=== PATIENT | female | born 1980 | race Caucasian/White ===

== ENCOUNTER 2020-11-05 17:19 | Outpatient (REF) | payer BC, SELFPAY ==
[2020-11-05 22:07] LABS: Abs Immature Grans 0.02 10^3/uL (0.0-0.06); Absolute Basophil Count 0.08 10^3/uL (0.0-0.2); Absolute Lymphocyte Count 2.18 10^3/uL (1.2-3.4); Absolute Monocyte Count 0.53 10^3/uL (0.1-0.8); Absolute Neutrophil Count 4.21 10^3/uL (1.2-6.7); Basophils % 1.1; Eosinophils % 6.6; HCT 43.6 % (36.0-46.0); HGB 14.5 g/dL (11.2-15.7); Immature Grans % 0.3; MCHC 33.3 % (32.0-36.0); MCV 93.4 fL (80-95); MPV 10.5 fL (8.0-11.0); Nucleated RBC 0 %; Platelet Count 325 10^3/uL (130-400); RBC 4.67 10^6/uL (3.93-5.22); RDW 12.8 % (11.7-14.6); RDW-SD 43.8 fL; WBC 7.52 10^3/uL (4.4-10.8)
[2020-11-05 22:23] LABS: ALT 24 U/L (14-59); AST 14 U/L (15-37); Albumin 4.4 g/dL (3.4-5.0); Alkaline Phosphatase 61 U/L (46-116); Anion Gap 13.6 mmol/L (3-11); BUN 11 mg/dL (7-18); Bilirubin, Total 0.2 mg/dL (0.2-1.0); CO2 21.4 mmol/L (21.0-32.0); CREATININE 0.8 mg/dL (0.55-1.02); Calcium 8.9 mg/dL (8.5-10.1); Chloride 108 mmol/L (98-107); Glucose 86 mg/dL (74-106); Potassium 4.2 mmol/L (3.5-5.1); Sodium 143 mmol/L (136-145); Total Protein 7.1 g/dL (6.4-8.2)
== END 2020-11-05 17:20 | disposition home or self-care (01) ==
LOC: LBN 17:19
PROVIDERS: Visit Provider Physician Assistant
DX: R10.9 Unspecified abdominal pain (principal)
CPT/HCPCS: 80053; 87491; 87591; 85025; 87480; 87510; 87660

== ENCOUNTER 2020-11-06 17:36 | Emergency (ER) | payer BC, SELFPAY ==
[2020-11-06 17:41] VITALS: BP 110/69; PULSE 67; TEMP 36.8; O2SAT 99
--- NOTE | 2020-11-06 18:39 | W.ED.GENAD ---
Discharge Plan Disposition Patient Disposition: HOME Condition: Stable Discharge Details Clinical Impression: Abdominal pain, Cholelithiasis Primary Care Provider: Marci Cruz ED Provider: Hussain Kaminski Home Meds and New Rx's Prescriptions: New metoclopramide HCl [Reglan] 10 mg tablet 10 mg PO Q8H PRN PRNQty: 10 RF: 0 Continued topiramate [Topamax] 25 mg tablet 50 mg PO BID RF: 0 gabapentin 100 mg capsule 200 mg PO BID RF: 0 lamotrigine 25 mg tablet 25 mg PO DIRECTED RF: 0 lorazepam 0.5 mg tablet 0.5 mg PO DAILY PRNRF: 0 Discharge Instructions Instructions: Gallstones (ED), Abdominal Pain (ED) Additional Instructions: At this time your laboratory values do not reveal any obvious emergent process. CT imaging reveals gallstones but no signs of acute cholecystitis. As we discussed, avoid fatty, greasy, fried foods. Reglan as directed for nausea. Please watch for new or worsening symptoms and return to the ER for any concerns. I have given you the name and number of our local surgical team, contact their office tomorrow to discuss outpatient reevaluation for your ongoing abdominal symptoms Referrals: Karol Flood, [OSTEOPATHIC DOCTOR] - Discharge Data Discharge Date/Time-TO BE ENTERED AT DEPARTURE: 11/06/20 22:11 Medical Decision Making This is a 40-year-old female presenting to the ER today for evaluation. She was seen at the urgent care yesterday, had a pelvic examination and laboratory values. She states that they were working on an outpatient CT but unable because of insurance issues. In short, abdominal pain, nausea, diarrhea for several weeks, weight loss because of the severe nausea and lack of appetite. She states that she has had a colonoscopy and endoscopy in the past where they saw ulcers but this feels nothing like that. Patient is hoping that we are able to obtain CT imaging for further evaluation. Clinically she appears well, nontoxic, no signs of dehydration. Her abdomen is soft, normal bowel sounds throughout, diffuse mild discomfort worse in the left lower quadrant. Certainly not surgical in nature. Also with diffuse lower back. Patient is sexually active with one partner, no risk for STD, I see no clear indication to repeat pelvic exam that was performed yesterday. Will obtain IV access, give IV fluids, Zofran, routine laboratory values and CT imaging with IV contrast. Differential is wide and includes but not excluded to GI, , SECURITY CONTROLS ASSESSOR, etiology, etc. Patient without any vomiting or diarrhea while under my care. Laboratory values are unremarkable for obvious emergent process. Urine ketones are 40, she is receiving [address] imaging obtained and reveals cholelithiasis without signs of cholecystitis. Discussed laboratory values and CT findings with patient. Although she is relieved there is no obvious emergent process, she is frustrated as there is no clear etiology of her symptoms. She reports that the Zofran has not helped and she would prefer a different medication to be prescribed. I will provide her a different antiemetic. Discussed the importance of bland diet, avoiding fried, fatty, greasy foods. We will also give name and number of our local surgical team for outpatient evaluation. Patient understands that she will likely need additional work-up and procedures for further evaluation of her symptoms. I do recommend that she contact her primary care provider later tomorrow to discuss outpatient reevaluation as well as potential GI referral if necessary. Patient agreeable to this plan and has no additional questions or concerns. Medical Records Medical records reviewed: Yes I reviewed the patient's medical records. Imaging Data Radiologic Study: Attestation: I personally reviewed and interpreted this imaging study as follows: Imaging: CT Scan Radiologist's impression: CT imaging abdomen and pelvis read by radiology as cholelithiasis without other signs of acute cholecystitis Lab Data Lab results reviewed: Yes I reviewed the patient's lab results. Labs: Laboratory Tests Range/Units 11/06/20 11/06/20 11/06/20 17:38 18:54 18:54 WBC (4.4-10.8) 10^3/uL 7.14 RBC (3.93-5.22) 10^6/uL 4.45 Hgb (11.2-15.7) g/dL 13.9 Hct (36.0-46.0) % 40.8 MCV (80-95) fL 91.7 MCH (27.0-33.0) pg 31.2 MCHC (32.0-36.0) % 34.1 RDW (11.7-14.6) % 12.8 Plt Count (130-400) 10^3/uL 281 MPV (8.0-11.0) fL 10.0 Immature Gran % 0.3 Neutrophils % 52.6 Lymphocytes % 34.0 Monocytes % 7.4 Eosinophils % 5.0 Basophils % 0.7 Nucleated RBC % % 0 Absolute Neutrophils (1.2-6.7) 10^3/uL 3.75 Absolute Lymphocytes (1.2-3.4) 10^3/uL 2.43 Absolute Monocytes (0.1-0.8) 10^3/uL 0.53 Absolute Eosinophils (0.0-0.7) 10^3/uL 0.36 Absolute Basophils (0.0-0.2) 10^3/uL 0.05 Sodium (136-145) mmol/L 143 Potassium (3.5-5.1) mmol/L 4.1 Chloride (98-107) mmol/L 107 Carbon Dioxide (21.0-32.0) mmol/L 24.6 Anion Gap (3-11) mmol/L 11.4 H BUN (7-18) mg/dL 10 Creatinine (0.55-1.02) mg/dL 0.7 Estimated GFR/1.73 m2 (mL/min/1.73m2) >= 60.00 Glucose (74-106) mg/dL 82 Calcium (8.5-10.1) mg/dL 9.5 Total Bilirubin (0.2-1.0) mg/dL 0.3 AST (15-37) U/L 13 L ALT (14-59) U/L 22 Alkaline Phosphatase (46-116) U/L 61 Total Protein (6.4-8.2) g/dL 7.0 Albumin (3.4-5.0) g/dL 4.3 Lipase (73-393) U/L 134 Urine Color Cancelled Urine Clarity Cancelled Urine pH Cancelled Ur Specific [place] Cancelled Urine Protein Cancelled Urine Ketones Cancelled Urine Blood Cancelled Urine Nitrite Cancelled Urine Bilirubin Cancelled Urine Urobilinogen Cancelled Ur Leukocyte Esterase Cancelled Urine Glucose Cancelled Range/Units 11/06/20 19:43 WBC (4.4-10.8) 10^3/uL RBC (3.93-5.22) 10^6/uL Hgb (11.2-15.7) g/dL Hct (36.0-46.0) % MCV (80-95) fL MCH (27.0-33.0) pg MCHC (32.0-36.0) % RDW (11.7-14.6) % Plt Count (130-400) 10^3/uL MPV (8.0-11.0) fL Immature Gran % Neutrophils % Lymphocytes % Monocytes % Eosinophils % Basophils % Nucleated RBC % % Absolute Neutrophils (1.2-6.7) 10^3/uL Absolute Lymphocytes (1.2-3.4) 10^3/uL Absolute Monocytes (0.1-0.8) 10^3/uL Absolute Eosinophils (0.0-0.7) 10^3/uL Absolute Basophils (0.0-0.2) 10^3/uL Sodium (136-145) mmol/L Potassium (3.5-5.1) mmol/L Chloride (98-107) mmol/L Carbon Dioxide (21.0-32.0) mmol/L Anion Gap (3-11) mmol/L BUN (7-18) mg/dL Creatinine (0.55-1.02) mg/dL Estimated GFR/1.73 m2 (mL/min/1.73m2) Glucose (74-106) mg/dL Calcium (8.5-10.1) mg/dL Total Bilirubin (0.2-1.0) mg/dL AST (15-37) U/L ALT (14-59) U/L Alkaline Phosphatase (46-116) U/L Total Protein (6.4-8.2) g/dL Albumin (3.4-5.0) g/dL Lipase (73-393) U/L Urine Color Yellow Urine Clarity Clear Urine pH 7.0 Ur Specific [place] 1.015 Urine Protein Negative Urine Ketones 40 H Urine Blood Negative Urine Nitrite Negative Urine Bilirubin Negative Urine Urobilinogen 0.2 Ur Leukocyte Esterase Negative Urine Glucose Negative HPI General Mode of arrival: ambulatory. Date/Time Provider Initiated Documentation: 11/06/20 17:52. Limitations to Documentation: no limitations. Information obtained by: patient. HPI Narrative: This is a 40-year-old female, reports history of back pain, current smoker, reports history of hysterectomy and C-sections. She is presenting to the ER after presenting to urgent care yesterday. Patient reports that she has had intermittent abdominal pain, nausea, diarrhea over the past several weeks, worsening in nature and frequency, now fairly constant. She reports that the nausea is so severe that it makes her not want to eat and therefore she is having weight loss. She denies recent travel, bad food exposure, sick contacts. Patient reports that she is sexually active with one partner, no risk for STDs, does report that she is having some discomfort with sexual intercourse. She denies vaginal bleeding or discharge. She denies vomiting, fever, dysuria, hematuria. She reports that the urgent care performed a pelvic examination which was unremarkable obtain laboratory values that were normal. They attempted to get an outpatient CT but they had difficulty given her insurance. Patient reports that the pain in her abdomen is more on the left side, and feels as though it travels to her back and across her entire back. She feels like these pains are connected and not separate. Nothing really makes her symptoms worse or better. She has not taken any medications for her symptoms. Related Data Home Medications Medication Instructions Recorded Confirmed gabapentin 100 mg capsule 200 mg PO BID cap 08/27/20 11/06/20 lamotrigine 25 mg tablet 25 mg PO DIRECTED tab 08/27/20 11/06/20 lorazepam 0.5 mg tablet 0.5 mg PO DAILY PRN 08/27/20 11/06/20 topiramate 25 mg tablet 50 mg PO BID tab 08/27/20 11/06/20 metoclopramide HCl [Reglan] 10 mg PO Q8H PRN PRN #10 tab 11/06/20 Previous Rx's Medication Instructions Recorded metoclopramide HCl [Reglan] 10 mg PO Q8H PRN PRN #10 tab 11/06/20 Allergies Allergy/AdvReac Type Severity Reaction Status Date / Time azithromycin Allergy Severe THROAT Verified 11/05/20 15:21 CLOSES UP shellfish derived Allergy Severe Anaphylaxis Verified 11/05/20 15:21 soy Allergy Intermediate RASH Verified 11/05/20 15:21 codeine AdvReac Mild GI UPSET Verified 11/05/20 15:21 hydrocodone AdvReac Mild GI UPSET Verified 11/05/20 15:21 General Stated Complaint: FlankPain HAVEN: 3 Review of Systems Constitutional Constitutional: Denies fatigue, Denies fever(s) and Denies headache(s) ENT Ears, Nose, Mouth, and Throat: Denies headache(s) and Denies neck pain Cardiovascular Cardiovascular: Denies chest pain and Denies dyspnea Respiratory Respiratory: Denies cough and Denies dyspnea Gastrointestinal Gastrointestinal: Reports abdominal pain, Denies melena, Denies constipation, Denies fecal incontinence, Reports diarrhea, Reports nausea and Denies vomiting Genitourinary Genitourinary: Denies abnormal vaginal bleeding, Denies dysuria and Denies vaginal discharge Musculoskeletal Musculoskeletal: Reports back pain and Denies neck pain Integumentary/Breasts Skin/Breast: Denies rash Neurologic Neurologic: Denies headache(s) Endocrine Endocrine: Denies fatigue PFSH Family History Mother Asthma Depression Hyperlipidemia Hypertension Father Depression Hyperlipidemia Hypertension Brother Alcohol abuse Asthma Hyperlipidemia Hypertension Son Asthma Depression Social History Smoking/Tobacco Use Status: Current every day Tobacco Type: cigarettes Tobacco: How many years used: 2 Quit status: considering quitting Second Hand Exposure: Yes Smoking risk assessment performed?: Yes Alcohol Intake: current Alcohol Intake frequency: holidays/special occasions only Alcohol type: hard liquor Drug use: Socially Substance use type: marijuana Caregiver/Support person: No Household members: significant other, children and other Details: CLIENT Communication Needs: Corrective Lenses Do you need help understanding health information?: Rarely Pets and animals: Yes Pets and animals: cat(s) and dog(s) Sexually active: Yes Do you think of yourself as: straight/heterosexual Current gender identity: female What is your relationship status?: living with partner How often do you talk on the phone with friends or family?: once per week How often do you get together with friends or relatives?: once per week How often do you attend adventism or voodoo services?: decline to answer Do you belong to any clubs or organized social groups?: no Panel score (0-1 are the most socially isolated patients): 1 What type of physical activity do you participate in: decline to answer Renate/Orthodoxy: No preference Special renate needs: No Seatbelt use: sometimes Helmet use: No (N/A) Drive intox or ride w/intox electric pile driver operator: No Do you feel safe at home: Yes Do you feel safe in your relationship?: Yes Exam Const General: cooperative, healthy appearing, comfortable and no acute distress Orientation: alert, awake and oriented x3 HENMT Head: normal to inspection, normocephalic and atraumatic Face and sinus: normal facial exam Mouth: moist mucous membranes Eyes General: appearance normal, both eyes and all related structures Conjunctivae: conjunctivae normal Neck Neck: normal visual inspection, full ROM, trachea midline and supple Resp Effort & Inspection: normal respiratory effort and able to speak in complete sentences Auscultation: clear to auscultation bilaterally Cardio Rate: regular rate Rhythm: regular rhythm GI Inspection: normal to inspection Palpation: soft, not firm, no guarding, no pulsatile masses and tender with no rebound tenderness Auscultation: normal bowel sounds Other: Abdomen is soft. There is diffuse mild discomfort across the lower aspect, slightly worse on the left. There is no guarding rebound or rigidity. There is no McBurney point tenderness or Burt sign. Back/Spine/Pelvis Back: no CVA tenderness and back tenderness (Diffuse mild, left slightly worse than right) Skin General skin exam: no rashes or lesions noted Neuro General: patient alert, patient awake, moves all extremities and no focal motor deficits Cognition: normal cognition Speech: speech normal Gait: normal gait Motor: muscle tone normal throughout Sensory Exam: no sensory deficits noted Extrem General: normal to inspection, full ROM and capillary refill normal Psych Appearance: grossly normal Mental Status: mental status grossly normal Course Vital Signs Vital signs: Vital Signs Temperature 36.8 C 11/06/20 17:41 Pulse 67 11/06/20 17:41 Blood Pressure 110/69 11/06/20 17:41 Pulse Oximetry 99 11/06/20 17:41 Temperature 36.8 C 11/06/20 17:41 Temperature Source Temporal Artery Scan 11/06/20 17:41 Pulse 67 11/06/20 17:41 Respiratory Effort Non-Labored 11/06/20 17:44 Blood Pressure 110/69 11/06/20 17:41 Pulse Oximetry 99 11/06/20 17:41 Oxygen Delivery Method Room Air 11/06/20 17:41 Oxygen Flow Rate 0 11/06/20 17:41 Pain Level 5 11/06/20 17:46
[2020-11-06 19:01] LABS: Abs Immature Grans 0.02 10^3/uL (0.0-0.06); Absolute Basophil Count 0.05 10^3/uL (0.0-0.2); Absolute Eosinophil Count 0.36 10^3/uL (0.0-0.7); Absolute Lymphocyte Count 2.43 10^3/uL (1.2-3.4); Absolute Monocyte Count 0.53 10^3/uL (0.1-0.8); Absolute Neutrophil Count 3.75 10^3/uL (1.2-6.7); Basophils % 0.7; HCT 40.8 % (36.0-46.0); HGB 13.9 g/dL (11.2-15.7); Immature Grans % 0.3; MCH 31.2 pg (27.0-33.0); MCHC 34.1 % (32.0-36.0); MCV 91.7 fL (80-95); Monocytes % 7.4; Neutrophils % 52.6; Nucleated RBC 0 %; Platelet Count 281 10^3/uL (130-400); RBC 4.45 10^6/uL (3.93-5.22); RDW 12.8 % (11.7-14.6); RDW-SD 42.9 fL; WBC 7.14 10^3/uL (4.4-10.8)
[2020-11-06] MEDS: Ondansetron 4 MG/2 ML VIAL IVP (19:02)
--- NOTE | 2020-11-06 19:30 | DI.CT_ITS ---
Exam(s) CT ABDOMEN PELVIS W EXAM: CT ABDOMEN PELVIS W CLINICAL HISTORY: Left sided pain, nausea, weight loss TECHNIQUE: Imaging Protocol: Axial computed tomography images with coronal and sagittal reformatted images were created and reviewed CONTRAST MATERIAL: Intravenous: Omnipaque 350 Contrast volume:100 mL Oral: No COMPARISON: No exams were available for comparison FINDINGS: ABDOMEN: Lung Bases: Normal where visualized. Liver: Normal density. No measurable mass. Portal, Superior Mesenteric, and Splenic Veins: Unremarkable. Gallbladder and Biliary Tract: Cholelithiasis. No biliary ductal dilatation. Pancreas: Normal density, no abnormal calcifications or inflammatory process. Spleen: Normal. Calcified granuloma. Adrenals: No masses seen. Kidneys: Normal size, contour and axis. No radiodense stones or obstructive uropathy. No masses seen. Abdominal Aorta: Abdominal portion non-dilated. Bowel: No obstruction or bowel wall thickening. Appendix is unremarkable. Diverticulosis in the sigmo id colon but no evidence of acute diverticulitis. Peritoneal Cavity: No ascites, collection or mesenteric inflammatory response. No free air. Lymph Nodes: Within normal limits. Bones: Within normal limits for the patient's age. Soft Tissues: Unremarkable. PELVIS: Bladder: Symmetric distention, no gross wall thickening. Reproductive Organs: Unremarkable as visualized. Lymph Nodes: Within normal limits. Bones: Within normal limits for the patient's age. IMPRESSION: 1. Cholelithiasis without evidence of acute cholecystitis. RADIATION DOSE DELIVERED: 816.54mGy.cm Total DLP DATA REPOSITORY: All CT scans at this facility are submitted to the National Radiology Data Registry (NRDR) Dose Index Registry (DIR) with the [employer] (ACR). RADIATION OPTIMIZATION: All CT scans at this facility use at least one of these dose optimization te chniques: automated exposure control; mA and/or kV adjustment per patient size (includes targeted exa ms where dose is matched to clinical indication); or iterative reconstruction.
[2020-11-06 19:39] LABS: ALT 22 U/L (14-59); AST 13 U/L (15-37); Albumin 4.3 g/dL (3.4-5.0); Alkaline Phosphatase 61 U/L (46-116); Anion Gap 11.4 mmol/L (3-11); BUN 10 mg/dL (7-18); Bilirubin, Total 0.3 mg/dL (0.2-1.0); CO2 24.6 mmol/L (21.0-32.0); CREATININE 0.7 mg/dL (0.55-1.02); Calcium 9.5 mg/dL (8.5-10.1); Chloride 107 mmol/L (98-107); Glucose 82 mg/dL (74-106); Lipase 134 U/L (73-393); Potassium 4.1 mmol/L (3.5-5.1); Sodium 143 mmol/L (136-145)
[2020-11-06 19:54] LABS: Bilirubin Negative (Negative); Blood Negative (Negative); Clarity Clear (Clear); Glucose Negative (Negative); Ketones 40 mg/dL (Negative); Leukocyte Esterase Negative (Negative); Nitrite Negative (Negative); Specific Gravity 1.015 (1.005-1.025); Urobilinogen 0.2 EU/dL (Up TO 0.2)
[2020-11-06 20:07] VITALS: BP 109/68; PULSE 81; RESP 16; TEMP 36.9; O2SAT 97
[2020-11-06] MEDS: Omnipaque 350 MG/ML 100 ML BTL IV (20:37)
--- NOTE | 2020-11-06 21:33 | DI.VRAD_ITS ---
PROCEDURE INFORMATION: Exam: CT Abdomen And Pelvis With Contrast Exam date and time: 11/06/2020 8:41 PM Age: 40 years old Clinical indication: Other: Left sided pain, nausea, weight loss TECHNIQUE: Imaging protocol: Computed tomography of the abdomen and pelvis with contrast. Radiation optimization: All CT scans at this facility use at least one of these dose optimization techniques: automated exposure control; mA and/or kV adjustment per patient size (includes targeted exams where dose is matched to clinical indication); or iterative reconstruction. Contrast material: OMNIPAQUE 350; Contrast volume: 100 ml; Contrast route: INTRAVENOUS (IV); COMPARISON: No relevant prior studies available. FINDINGS: Liver: Focal fat adjacent to the falciform ligament. Liver is otherwise unremarkable. Gallbladder and bile ducts: Several small dependent gallstones. No gallbladder wall thickening or pericholecystic fluid. No biliary duct dilatation. Pancreas: Normal. No ductal dilation. Spleen: Normal. No splenomegaly. Adrenal glands: Normal. No mass. Kidneys and ureters: Normal. No hydronephrosis. Stomach and bowel: Unremarkable. No obstruction. No mucosal thickening. Appendix: Normal appendix. Intraperitoneal space: Unremarkable. No free air. No significant fluid collection. Vasculature: Multiple pelvic phleboliths. Normal aorta. Lymph nodes: Unremarkable. No enlarged lymph nodes. Urinary bladder: Unremarkable as visualized. Reproductive: Uterus is absent. No adnexal mass. Bones/joints: Unremarkable. No acute fracture. Soft tissues: Unremarkable. IMPRESSION: Cholelithiasis without other signs of acute cholecystitis. Dictated and Authenticated by: Jj Jules MD. Ordering:REBECCA Nixon MD
== END 2020-11-06 22:11 | disposition home or self-care (01) ==
PROVIDERS: Emergency Provider Physician Assistant
DX: K80.20 Calculus of gallbladder without cholecystitis without obstruction (principal); R10.32 Left lower quadrant pain; R11.0 Nausea
CPT/HCPCS: 36415; 80053; 81025; 83690; 96374; 99285; 74177; 81003; 85025; J2405; J3490

== ENCOUNTER 2021-02-16 03:11 | Outpatient (CLI) | payer BC, SELFPAY ==
[2021-02-16 13:02] LABS: Source Nasal/Nares
[2021-02-16 16:48] LABS: COVID-19 PCR Negative (Negative)
== END 2021-02-16 03:12 | disposition home or self-care (01) ==
LOC: LBO 03:12
PROVIDERS: Visit Provider Surgery
DX: Z20.822 Contact with and (suspected) exposure to COVID-19 (principal); Z01.818 Encounter for other preprocedural examination
CPT/HCPCS: 87635

== ENCOUNTER 2021-02-17 06:22 | Day surgery (SDC) | payer BC, SELFPAY ==
[2021-02-17] VITALS (9 sets, daily range): BP systolic 105–130; BP diastolic 65–93; PULSE 55–79; RESP 13–18; TEMP 36.3–36.7; O2SAT 95–100; BMI 26.2
--- NOTE | 2021-02-17 06:19 | W.ANESPRE ---
General Info Height: 5 ft 2 in Weight: 64.92 kg Body Mass Index (BMI): 26.2 Surgical Procedure: Operation Date: 02/17/21 07:40 Proposed Procedures Side Surgeon p Cholecystectomy Laparoscopic, POSSIBLE OPEN, POSSIBLE LYSIS OF ADHESIONS Karol Flood, Meds Allergies and Home Medications Allergies Allergy/AdvReac Type Severity Reaction Status Date / Time azithromycin Allergy Severe THROAT Verified 02/17/21 06:40 CLOSES UP propranolol Allergy Severe drops BP Verified 02/17/21 06:40 quickly shellfish derived Allergy Severe Anaphylaxis Verified 02/17/21 06:40 adhesive Allergy Intermediate blisters, Verified 02/17/21 06:40 silk tape only per patient erythromycin base Allergy Intermediate Diarrhea Verified 02/17/21 06:40 latex Allergy Intermediate Hives, Verified 02/17/21 06:40 lips mariam soy Allergy Intermediate RASH Verified 02/17/21 06:40 albuterol Allergy Unknown Verified 02/17/21 06:40 codeine AdvReac Severe GI UPSET Verified 02/17/21 06:40 hydrocodone AdvReac Severe GI UPSET Verified 02/17/21 06:40 Home Medication Medication Instructions Recorded gabapentin 100 mg capsule 200 mg PO BID cap 08/27/20 lorazepam 0.5 mg tablet 0.5 mg PO DAILY PRN 08/27/20 topiramate 25 mg tablet 50 mg PO BID tab 08/27/20 biotin 2,500 mcg capsule 2,500 mcg PO DAILY 11/11/20 cholecalciferol (vitamin D3) 125 125 mcg PO DAILY 11/11/20 mcg (5,000 unit) capsule riboflavin (vitamin B2) 100 mg 100 mg PO DAILY 11/11/20 tablet aspirin 81 mg tablet,delayed 81 mg PO DAILY 11/15/20 release epinephrine 0.3 mg/0.3 mL 0.3 mg IM ONCE PRN 11/15/20 injection, auto-injector omeprazole 20 mg capsule,delayed 20 mg PO DAILY 11/15/20 release acetaminophen 500 mg tablet 1,000 mg PO Q6H PRN #90 tab 02/05/21 ibuprofen 800 mg tablet 800 mg PO Q8H PRN #90 tab 02/05/21 lamotrigine 25 mg tablet 25 mg PO BID tab 02/05/21 tramadol 50 mg tablet 50 mg PO QHS PRN #12 tab MDD 50mg 02/05/21 omega-3 fatty acids 1,000 mg 1,000 mg PO DAILY 02/12/21 capsule vitamin B complex 1 tab PO DAILY 02/12/21 Current Visit Medications: Current Medications Generic Name Dose Route Start Last Admin Trade Name Gerardo PRN Reason Stop Dose Admin Acetaminophen 1,000 mg 02/17/21 06:00 Acetaminophen 500 Mg Tab PO 02/17/21 16:00 PREOP NITIN Gabapentin 300 mg 02/17/21 06:00 Gabapentin 300 Mg Cap PO 02/17/21 16:00 PREOP NITIN Ringer's Solution 1,000 mls @ 80 mls/hr 02/17/21 06:00 IV 03/18/21 23:59 INFUSION NITIN Cefazolin Sodium/Dextrose 2 gm in 50 mls @ 100 mls/hr 02/17/21 06:00 Ancef Duplex IVPB 02/17/21 16:00 PREOP NITIN IV Miscellaneous Supplies 1 each 02/17/21 06:00 Iv Access IV 03/18/21 23:59 DIRECTED NITIN Sodium Chloride 0 ml 02/17/21 06:00 Normal Saline Flush 10 Ml Syr IV 03/18/21 23:59 PRN PRN Sodium Chloride 0 ml 02/17/21 06:00 Normal Saline 10 Ml Vial IJ 03/18/21 23:59 DIRECTED PRN Sterile Water 0 ml 02/17/21 06:00 Water,Injection,Sterile 10 Ml Vial IJ 03/18/21 23:59 DIRECTED PRN PFSH Active Problems Active Problems: Problem Status Onset Code Pelvic adhesions ~01/18/17 N73.6 Cystocele ~01/18/17 Vaginal prolapse ~01/18/17 N81.10 Pityriasis rosea L42 Cholelithiasis K80.20 Numbness and tingling of left side of face R20.0, R20.2 Serous detachment of retinal pigment epithelium, 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 Vitreous degeneration, right eye H43.811 Regular astigmatism, bilateral H52.223 Hypermetropia, left eye H52.02 Dry eye syndrome of bilateral lacrimal glands H04.123 Erosive gastritis ~03/10/18 K29.60 Hemiplegic migraine, not intractable, without status migrainosus ~04/16/16 G43.409 Classical migraine ~10/03/15 G43.109 Depression ~10/03/15 F32.9 Abdominal pain R10.9 Lumbar back pain with radiculopathy affecting left lower extremity M54.16 Medical History Medical History Carpal tunnel syndrome Cholelithiasis Classical migraine (~10/03/15) Cystocele (~01/18/17) De Quervain's disease (tenosynovitis) Depression (~10/03/15) Dry eye syndrome of bilateral lacrimal glands Erosive gastritis (~03/10/18) Hemiplegic migraine, not intractable, 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, left eye Median nerve entrapment Numbness and tingling of left side of face Migrainous s/s Pelvic adhesions (~01/18/17) Pityriasis rosea Rectocele (~01/18/17) Regular astigmatism, bilateral Retinal vasculitis, 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, left eye Vaginal prolapse (~01/18/17) Vitreous degeneration, right eye Surgical History Surgical History H/O section x3 H/O gynecological procedure Uterine Oblation H/O laparoscopy (~01/18/17) colpopexy, mesh sacral, lysis of adhesions H/O wisdom tooth extraction History of anterior colporrhaphy post rectocele with or w/o perineorrhaphy History of bladder suspension procedure (~04/29/15) History of esophagogastroduodenoscopy (EGD) (~04/29/17) also 02/2018 History of hysterectomy Hx of tonsillectomy (~04/29/14) Tobacco Smoking/Tobacco Use Status: Current every day Tobacco Type: cigarettes Tobacco: How many years used: 2 Quit Status: considering quitting Second hand exposure: Yes Alcohol Alcohol Intake: current Alcohol intake frequency: holidays/special occasions only Alcohol type: hard liquor Substance Use Substance use: Socially Substance use type: marijuana Vital Signs and Lab Results Vital Signs Most Recent Vital Signs in EMR: Temp Pulse Resp BP Pulse Ox 36.4 C L 79 16 105/70 100 02/17/21 06:44 02/17/21 06:44 02/17/21 06:44 02/17/21 06:44 02/17/21 06:44 Lab Results Blood Type / Crossmatch: No Data to Display Complete Blood Count: No Data to Display Complete Metabolic Panel: No Data to Display Liver Function Panel: No Data to Display Coagulation Panel: No Data to Display Cardiac Panel: No Data to Display Arterial Blood Gas: No Data to Display Venous Blood Gas: No Data to Display Pancreas Panel: No Data to Display Thyroid Panel: No Data to Display Infectious Disease: Coronavirus (COVID-19)(PCR) Negative (Negative) 02/16/21 08:31 02/16/21 Coronavirus 2019 Source Nasal/Nares 02/16/21 08:31 02/16/21 Blood Cultures: No Data to Display Toxicology Panel: No Data to Display Panel: No Data to Display Anesthesia Assessment and Plan Anesthesia History Personal History: PONV Family History: No Family History of Anesthesia Complications Exercise Tolerance Exercise Tolerance: Metabolic Equivalents>4 ASA Classification ASA Score: ASA 2 NPO Status NPO Status: NPO Clears >2 hours, Solids >8 hours Anesthesia Plan Resuscitation Status: Full Code Anesthesia Technique: General Anesthesia Airway Planned: Endotracheal Tube Monitors Used: Standard Monitors Preoperative Comments:: 41 yo female for lap yeyo 2/2 cholelithiasis. hisotry of migraine, PONV, exercise induced asthma. previous anesthesia mac 3, grade 1, easy mask.
--- NOTE | 2021-02-17 06:56 | W.ANESPRE ---
General Info Date of Service Date Performed: 02/17/21 Height: 5 ft 2 in Weight: 64.92 kg Body Mass Index (BMI): 26.2 Surgical Procedure: Operation Date: 02/17/21 07:40 Proposed Procedures Side Surgeon p Cholecystectomy Laparoscopic, POSSIBLE OPEN, POSSIBLE LYSIS OF ADHESIONS Karol Flood, DO Meds Allergies and Home Medications Allergies Allergy/AdvReac Type Severity Reaction Status Date / Time azithromycin Allergy Severe THROAT Verified 02/17/21 06:40 CLOSES UP propranolol Allergy Severe drops BP Verified 02/17/21 06:40 quickly shellfish derived Allergy Severe Anaphylaxis Verified 02/17/21 06:40 adhesive Allergy Intermediate blisters, Verified 02/17/21 06:40 silk tape only per patient erythromycin base Allergy Intermediate Diarrhea Verified 02/17/21 06:40 latex Allergy Intermediate Hives, Verified 02/17/21 06:40 lips mariam soy Allergy Intermediate RASH Verified 02/17/21 06:40 albuterol Allergy Unknown Verified 02/17/21 06:40 codeine AdvReac Severe GI UPSET Verified 02/17/21 06:40 hydrocodone AdvReac Severe GI UPSET Verified 02/17/21 06:40 Home Medication Medication Instructions Recorded gabapentin 100 mg capsule 200 mg PO BID cap 08/27/20 lorazepam 0.5 mg tablet 0.5 mg PO DAILY PRN 08/27/20 topiramate 25 mg tablet 50 mg PO BID tab 08/27/20 biotin 2,500 mcg capsule 2,500 mcg PO DAILY 11/11/20 cholecalciferol (vitamin D3) 125 125 mcg PO DAILY 11/11/20 mcg (5,000 unit) capsule riboflavin (vitamin B2) 100 mg 100 mg PO DAILY 11/11/20 tablet aspirin 81 mg tablet,delayed 81 mg PO DAILY 11/15/20 release epinephrine 0.3 mg/0.3 mL 0.3 mg IM ONCE PRN 11/15/20 injection, auto-injector omeprazole 20 mg capsule,delayed 20 mg PO DAILY 11/15/20 release acetaminophen 500 mg tablet 1,000 mg PO Q6H PRN #90 tab 02/05/21 ibuprofen 800 mg tablet 800 mg PO Q8H PRN #90 tab 02/05/21 lamotrigine 25 mg tablet 25 mg PO BID tab 02/05/21 tramadol 50 mg tablet 50 mg PO QHS PRN #12 tab MDD 50mg 02/05/21 omega-3 fatty acids 1,000 mg 1,000 mg PO DAILY 02/12/21 capsule vitamin B complex 1 tab PO DAILY 02/12/21 Current Visit Medications: Current Medications Generic Name Dose Route Start Last Admin Trade Name Gerardo PRN Reason Stop Dose Admin Acetaminophen 1,000 mg 02/17/21 06:00 Acetaminophen 500 Mg Tab PO 02/17/21 16:00 PREOP NITIN Gabapentin 300 mg 02/17/21 06:00 Gabapentin 300 Mg Cap PO 02/17/21 16:00 PREOP NITIN Ringer's Solution 1,000 mls @ 80 mls/hr 02/17/21 06:00 IV 03/18/21 23:59 INFUSION NITIN Cefazolin Sodium/Dextrose 2 gm in 50 mls @ 100 mls/hr 02/17/21 06:00 Ancef Duplex IVPB 02/17/21 16:00 PREOP NITIN IV Miscellaneous Supplies 1 each 02/17/21 06:00 Iv Access IV 03/18/21 23:59 DIRECTED NITIN Sodium Chloride 0 ml 02/17/21 06:00 Normal Saline Flush 10 Ml Syr IV 03/18/21 23:59 PRN PRN Sodium Chloride 0 ml 02/17/21 06:00 Normal Saline 10 Ml Vial IJ 03/18/21 23:59 DIRECTED PRN Sterile Water 0 ml 02/17/21 06:00 Water,Injection,Sterile 10 Ml Vial IJ 03/18/21 23:59 DIRECTED PRN PFSH Active Problems Active Problems: Problem Status Onset Code Pelvic adhesions ~01/18/17 N73.6 Cystocele ~01/18/17 Vaginal prolapse ~01/18/17 N81.10 Pityriasis rosea L42 Cholelithiasis K80.20 Numbness and tingling of left side of face R20.0, R20.2 Serous detachment of retinal pigment epithelium, 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 Vitreous degeneration, right eye H43.811 Regular astigmatism, bilateral H52.223 Hypermetropia, left eye H52.02 Dry eye syndrome of bilateral lacrimal glands H04.123 Erosive gastritis ~03/10/18 K29.60 Hemiplegic migraine, not intractable, without status migrainosus ~04/16/16 G43.409 Classical migraine ~10/03/15 G43.109 Depression ~10/03/15 F32.9 Abdominal pain R10.9 Lumbar back pain with radiculopathy affecting left lower extremity M54.16 Medical History Medical History Carpal tunnel syndrome Cholelithiasis Classical migraine (~10/03/15) Cystocele (~01/18/17) De Quervain's disease (tenosynovitis) Depression (~10/03/15) Dry eye syndrome of bilateral lacrimal glands Erosive gastritis (~03/10/18) Hemiplegic migraine, not intractable, 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, left eye Median nerve entrapment Numbness and tingling of left side of face Migrainous s/s Pelvic adhesions (~01/18/17) Pityriasis rosea Rectocele (~01/18/17) Regular astigmatism, bilateral Retinal vasculitis, 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, left eye Vaginal prolapse (~01/18/17) Vitreous degeneration, right eye Surgical History Surgical History H/O section x3 H/O gynecological procedure Uterine Oblation H/O laparoscopy (~01/18/17) colpopexy, mesh sacral, lysis of adhesions H/O wisdom tooth extraction History of anterior colporrhaphy post rectocele with or w/o perineorrhaphy History of bladder suspension procedure (~04/29/15) History of esophagogastroduodenoscopy (EGD) (~04/29/17) also 02/2018 History of hysterectomy Hx of tonsillectomy (~04/29/14) Tobacco Smoking/Tobacco Use Status: Current every day Tobacco Type: cigarettes Smoking cigarettes per day: 6 Tobacco: How many years used: 2 Quit Status: considering quitting Second hand exposure: Yes Alcohol Alcohol Intake: current Alcohol intake frequency: holidays/special occasions only Alcohol type: hard liquor Substance Use Substance use: Socially Substance use type: marijuana Details: Last marijuana use 02/16 Vital Signs and Lab Results Vital Signs Most Recent Vital Signs in EMR: Most Recent Vital Signs Temp Pulse Resp BP Pulse Ox 36.4 C L 79 16 105/70 100 02/17/21 06:44 02/17/21 06:44 02/17/21 06:44 02/17/21 06:44 02/17/21 06:44 Lab Results Blood Type / Crossmatch: No Data to Display Complete Blood Count: No Data to Display Complete Metabolic Panel: No Data to Display Liver Function Panel: No Data to Display Coagulation Panel: No Data to Display Cardiac Panel: No Data to Display Arterial Blood Gas: No Data to Display Venous Blood Gas: No Data to Display Pancreas Panel: No Data to Display Thyroid Panel: No Data to Display Infectious Disease: Coronavirus (COVID-19)(PCR) Negative (Negative) 02/16/21 08:31 02/16/21 Coronavirus 2019 Source Nasal/Nares 02/16/21 08:31 02/16/21 Blood Cultures: No Data to Display Toxicology Panel: No Data to Display Panel: No Data to Display Anesthesia Assessment and Plan Anesthesia History Personal History: PONV Family History: No Family History of Anesthesia Complications Exercise Tolerance Exercise Tolerance: Metabolic Equivalents>4 Pertinent Negatives Pertinent Negatives: No Symptoms of GERD, No Major Cardiovascular Symptoms or Complaints, No History of CVA/TIA and Other (Cigarettes 6-8/day, marijuana, asthma) Cardiac & Pulmonary Exam Cardiac Exam: Normal S1/S2 Heart Sounds Pulmonary Exam: Clear Bilateral Breath Sounds Airway Exam Known Difficult Airway: No Mallampati Class: 1 Mouth Opening: Normal (> 3cm) Thyromental Distance: Greater than 3 cm Neck Range of Motion: Full ROM Neck Circumference: Normal Teeth Condition: Loose or Chipped (Loose back left molar) ASA Classification ASA Score: ASA 2 Emergency Case?: No NPO Status NPO Status: NPO Clears >2 hours, Solids >8 hours Status Status: Not Relevant due to Medical History (Hysterectomy) Anesthesia Plan Resuscitation Status: Full Code Anesthesia Technique: General Anesthesia Airway Planned: Endotracheal Tube Monitors Used: Standard Monitors
[2021-02-17] MEDS: Gabapentin 300 MG CAP PO (06:57)
[2021-02-17] MEDS: Lactated Ringers 1,000 ML 80 ML IV (06:57)
[2021-02-17] MEDS: Acetaminophen 500 MG TAB 1000 MG PO (06:57)
[2021-02-17] MEDS: ceFAZolin 2 GM/50 ML BAG IVPB (07:35)
[2021-02-17] MEDS: Bupivacaine 0.25% Pres-Free 30 ML VIAL (08:01)
--- NOTE | 2021-02-17 08:28 | GB_PTH ---
PATIENT: Briseida Ann LOC: [facility] U#:[id number] AGE/SX: 41/F ROOM: RE02/17/[address]: Karol Flood : 1980 BED: DIS: 02/17/2021 SPEC #: [id number] RECD: 02/17/21 12:44 STATUS: CARRIE REQ #: [id number] [place]: 02/17/21 08:[address]: Karol Flood DEPT: Surgical Specimen RECD BY: Sherin Leary ENTERED: 02/17/21 12:45 SP TYPE: GB OTHR DR: Marci Cruz APRN Tissues: 1 - GALLBLADDER Procedures: GROSS AND MICRO LEVEL 3 Comments: [id number]
[2021-02-17] MEDS: HYDROmorphone 2 MG/ML VIAL IVP ×2 (09:03→09:15)
[2021-02-17] MEDS: Normal Saline Flush 10 ML SYR IV (09:05)
--- NOTE | 2021-02-17 09:13 | W.PM.OP ---
Date of service: 02/17/21 Time of Service: 09:13 Operative Note Operative Note DATE OF PROCEDURE: 02/17/21 PRE-OP DIAGNOSIS: gallstones POST-OP DIAGNOSIS: same PROCEDURE: lap yeyo SURGEON: Karol Randle [employer]ENER [employer]: Severo Cardozo ANESTHESIA TYPE: General LMA/ETT Refer to Anesthesia Record ESTIMATED BLOOD LOSS: 10 PATHOLOGY: other COMPLICATIONS: None Patient was transported to: PACU Patient's condition: stable Procedure Description: The pt is seen at the request of there PCP regarding acute on chronic cholecystitis, cholelithiasis. The pt has failed outpt conservative medical measures and is here today for laparoscopic cholecystectomy. Informed consent was obtained, explaining risks and benefits of the procedure including but not limited to bleeding, infection, pneumonia, blood clots, possible damage to bowel, bladder, blood vessels, bile ducts, possible open procedure, complications of general anesthesia and other unforetold complications. PROCEDURE: The patient agrees and is brought to the operative room suite and placed in supine position. Anesthesia was administered per the Department of Anesthesia. The patient did receive IV antibiotics. NG tube and Henley catheter are placed. The patient was prepped and draped in the usual sterile fashion using DuraPrep scrub solution. Pause for the cause was done. 20 mL of 1% buffered lidocaine was used for local anesthetization. A stab incision was made in the umbilicus and the Verres inserted. Drop test was positive and insufflation was begun. When 15 mm of pressure was noted on the monitor, the Veress was removed and #5 port inserted. The camera was inserted through the port and shows no damage to underlying structures. A 10 mm port was then placed in the epigastric position under direct visualization following creation of local field blocks as well as two 5 mm ports in the right upper quadrant. There were some omental adhesions up to the GB-these were taken down w/ a combination of sharp adn blunt dissection. There were no adhesions into the pelvis. The gallbladder fundus was grasped and retracted towards the right shoulder. Infundibulum was grasped and retracted laterally. The hepat-duodenal ligament is entered. The cystic duct and artery are dissected out and the most inferior portion of the gallbladder plate is removed from the liver and the critical view of safety was obtained after clearing away all fatty material. Endo Clips were placed across the duct and artery and these structures are divided. The remainder of the gallbladder was excised from the liver bed. The gallbladder was placed in a bag and brought out. Examination of the gallbladder shows indeed the cystic duct and artery to have been divided. The remainder of the abdomen was copiously irrigated with a liter of saline. All saline is removed. There is no bleeding or bile leakage from the liver bed or the clips sites. An EndoClose needle was used to close the 10 mm port site with an 0 Vicryl. All ports and instruments are removed. SPonge and needle counts are correct. Pneumoperitoneum is evacuated and the port sites are monitored to make sure there is no bleeding at the time of desufflation. Port sites are irrigated and the skin is closed with 4-0 Monocryl in a running subcuticular fashion. Skin glue sterile dressings are applied. The patient tolerated the procedure well without complications, transferred to the recovery room in stable condition. KAROL RANDLE, DO
[2021-02-17] MEDS: LORazepam 2 MG/ML VIAL 0.5 MG IVP (09:30)
--- NOTE | 2021-02-17 09:38 | PDOC.DSDIS_ITS ---
Discharge Plan Disposition Patient Disposition: HOME Condition: Good Discharge Details Reason For Visit: gallbladder removal Attending Provider: Karol Flood Primary Care Provider: Marci Cruz Home Meds and New Rx's Prescriptions: New tramadol [Ultram] 50 mg tablet 50 mg PO Q6H PRNQty: 14 RF: 0 ibuprofen 600 mg tablet 600 mg PO Q6H PRNQty: 90 RF: 0 ondansetron HCl [Zofran] 4 mg tablet 4 mg PO Q6H PRNQty: 4 RF: 0 Continued topiramate [Topamax] 25 mg tablet 50 mg PO BID RF: 0 gabapentin 100 mg capsule 200 mg PO BID RF: 0 lorazepam 0.5 mg tablet 0.5 mg PO DAILY PRNRF: 0 vitamin B complex [B Complex-Vitamin B12] Tablet 1 tab PO DAILY RF: 0 omega-3 fatty acids [Fish Oil Concentrate] 1,000 mg capsule 1,000 mg PO DAILY RF: 0 lamotrigine 25 mg tablet 25 mg PO BID RF: 0 acetaminophen 500 mg tablet 1,000 mg PO Q6H PRN (Reason: fever) Qty: 90 RF: 0 ibuprofen 800 mg tablet 800 mg PO Q8H PRN (Reason: pain) Qty: 90 RF: 1 tramadol 50 mg tablet 50 mg PO QHS MDD 50mg PRN (Reason: pain, moderate) Qty: 12 RF: 0 riboflavin (vitamin B2) 100 mg tablet 100 mg PO DAILY RF: 0 cholecalciferol (vitamin D3) 125 mcg (5,000 unit) capsule 125 mcg PO DAILY RF: 0 biotin 2,500 mcg capsule 2,500 mcg PO DAILY RF: 0 aspirin 81 mg tablet,delayed release (DR/EC) 81 mg PO DAILY RF: 0 Hold Instructions: Home Medication placed on hold at Doctor's office omeprazole 20 mg capsule,delayed release(DR/EC) 20 mg PO DAILY RF: 0 epinephrine [EpiPen 2-Sheldon] 0.3 mg/0.3 mL auto-injector 0.3 mg IM ONCE PRNRF: 0 Discharge Instructions Additional Instructions: Care after Gallbladder Surgery -Pain control: For the first 72 hours after surgery, take you pain meds continuously and not just when you have pain. Alternate Tylenol 1000mg by mouth every 8 hours, and Ibuprofen 600mg every 6 hours. Make sure you take ibuprofen with food and not on an empty stomach. Use the tramadol for breakt hrough pain- pain that is greater than a 7. - Use ICE! Ice really helps to keep the swelling down, and swelling causes pain. Twenty minutes on, and then off, continuously for the first 72hours. A fter the first 72hrs, you can just use the Tylenol, ibuprofen / Celebrex, and ice, when you have pain. If you are taking narcotic pain medication, follow the instructions on the label and do not drive. Pain medications can make you very constipated. Make sure you are moving your bowels daily. If not, take Miralax, milk of magnesia or magnesium citrate. - Anesthesia makes you very constipated. Take a dose of milk of magnesia the morning after surgery. ? Use an ice bag for the first 72 hours. This helps to decrease swelling, which causes pain. It is normal to be more sore/painful and swollen towards the end of the day and first thing in the morning. ? Gallbladder surgery can make you very nauseated; use Zofran for nausea, for the first 24 hours. The nausea generally stops after 24 hours. ? Use milk of magnesia or prune juice to prevent constipation (this is a particular side effect of pain medication and anesthesia). Do not allow yourself to become constipated. Take a dose of M.O.M. the morning after surgery. ? Avoid fatty or greasy foods; introduce these slowly, with care, after about 1 month. High-fat foods include: ? Foods that are fried, like Portuguese fries and potato chips ? High-fat meats, such as oliver, bologna, sausage, ground beef, and ribs, pork products ? High-fat dairy products, such as cheese, ice cream, cream, whole milk, and sour cream ? Pizza ? Foods made with lard or butter ? Creamy soups or sauces ? Meat gravies ? Chocolate ? Oils, such as palm and coconut oil ? Skin of chicken or turkey Nuts and nut butters [place] ? Start out eating very small, bland amounts of food. Do not take pain pills on an empty stomach. - You will notice purple discoloration around the incisions. This is the ?skin glue?. This will wear off on its own. It is OK to shower after 24hrs. You do not need to cover the incisions. - -You should walk frequently, gradually, increasing the distance. You may climb stairs, just go slowly. ? Do not go swimming or sit in a hot tub for two weeks. ? There are no stitches to remove. ? Do not drive your car x72hrs and then only if you have no pain and can move freely. Do not drive if you are taking pain narcotic pain medications. ? You may resume sexual activity whenever pain and soreness subside, usually in 2 weeks. ? Do no lift anything over 5 lbs. for two weeks. ? You may return to work in one week, or when you feel able, provided you do not have to do any heavy lifting or prolonged standing. ? You should return to Dr. Flood?s office for a post-op appointment about one week after surgery. Please call the Surgical [facility] at: [phone] F/u appt: Mar 05 9:30am My Medications for pain and nausea are: ibuprofen and ultram, and zofran When to Call the Office: ? If the incision becomes red or swollen, or there is more than a little drainage from it. ? If you develop a temperature higher than 100.5 F. ? If your eyes turn yellow ? Vomiting and can?t keep fluids down Activity:: See above Remove Dressings/Wound Care:: 24 hours Shower/Bathe:: 24 hours Diet:: See above Discharge Orders Discharge Orders: Discharge Order (Routine); Ordered 02/17/21 Ordered By: Karol Flood DS: Diagnosis Discharge Diagnosis (1) Cholelithiasis: Status: Acute
--- NOTE | 2021-02-17 14:44 | W.ANESPOSTOP ---
Postoperative Evaluation Date, Time and Location Date Performed: 02/17/21 Time Performed: 14:44 Patient Location: Day Surgery Unit Vital Signs Most Recent Imported Vital Signs: Most Recent Vital Signs Temp Pulse Resp BP Pulse Ox 36.7 C 57 L 15 118/77 99 02/17/21 10:42 02/17/21 10:42 02/17/21 10:42 02/17/21 10:42 02/17/21 10:42 Pain Score Most Recent Pain Score: Most Recent Pain Score Pain Level 5 02/17/21 10:42 Assessment Mental Status: Awake (Alert & Oriented to Patient Baseline) Airway and Respiratory Function: Patent airway with normal (patient baseline) respiratory exam Cardiovascular Function: Hemodynamically Stable Hydration Status: Adequately Hydrated Nausea & Vomiting: No Nausea or Vomiting Pain: Pain is tolerable per patient Peripheral Nerve Block: Patient did not receive a nerve block
== END 2021-02-17 11:10 | disposition home or self-care (01) ==
PROVIDERS: Visit Provider Surgery
PROC: 0FT44ZZ Resection of Gallbladder, Percutaneous Endoscopic Approach (ICD-10-PCS; CPT 47562; principal; 2021-02-17 07:30)
DX: K80.10 Calculus of gallbladder with chronic cholecystitis without obstruction (principal); G43.909 Migraine, unspecified, not intractable, without status migrainosus
CPT/HCPCS: 47562; 88304; J0690; J1100; J1885; J2001; J2060; J2250; J2405

== ENCOUNTER 2021-03-28 10:09 | Emergency (ER) | payer BC, SELFPAY ==
[2021-03-28] VITALS (69 sets, daily range): BP systolic 78–126; BP diastolic 55–92; PULSE 52–101; RESP 9–28; TEMP 36.3–36.6; O2SAT 95–100
--- NOTE | 2021-03-28 10:17 | ED.GENADUL_ITS ---
Discharge Plan Disposition Patient Disposition: HOME Condition: Stable Discharge Details Clinical Impression: Seizure Primary Care Provider: Marci Cruz ED Provider: Eva Garcia Home Meds and New Rx's Prescriptions: Continued topiramate [Topamax] 25 mg tablet 50 mg PO BID RF: 0 gabapentin 100 mg capsule 200 mg PO BID RF: 0 lorazepam 0.5 mg tablet 0.5 mg PO DAILY PRNRF: 0 vitamin B complex [B Complex-Vitamin B12] Tablet 1 tab PO DAILY RF: 0 omega-3 fatty acids [Fish Oil Concentrate] 1,000 mg capsule 1,000 mg PO DAILY RF: 0 lamotrigine 25 mg tablet 50 mg PO QAM RF: 0 acetaminophen 500 mg tablet 1,000 mg PO Q6H PRN (Reason: fever) Qty: 90 RF: 0 ibuprofen 800 mg tablet 800 mg PO Q8H PRN (Reason: pain) Qty: 90 RF: 1 phenobarbital 30 mg tablet 30 mg PO BID RF: 0 riboflavin (vitamin B2) 100 mg tablet 100 mg PO DAILY RF: 0 cholecalciferol (vitamin D3) 125 mcg (5,000 unit) capsule 125 mcg PO DAILY RF: 0 biotin 2,500 mcg capsule 2,500 mcg PO DAILY RF: 0 ondansetron HCl [Zofran] 4 mg tablet 4 mg PO Q6H PRN (Reason: nausea and vomiting) Qty: 10 RF: 0 aspirin 81 mg tablet,delayed release (DR/EC) 81 mg PO DAILY RF: 0 Hold Instructions: Home Medication placed on hold at Doctor's office omeprazole 20 mg capsule,delayed release(DR/EC) 20 mg PO DAILY RF: 0 epinephrine [EpiPen 2-Sheldon] 0.3 mg/0.3 mL auto-injector 0.3 mg IM ONCE PRNRF: 0 ibuprofen 600 mg tablet 600 mg PO Q6H PRNQty: 90 RF: 0 lamotrigine 25 mg tablet 25 mg PO HS RF: 0 Discharge Instructions Instructions: Recurrent Seizures in Adults (ED) Additional Instructions: Do not take any of the tramadol that you may have left at home from your recent surgery as this can cause seizure activity. Continue to take your Lamictal and phenobarbital as directed. Call Dr. Park on Tuesday to discuss your medication management and to schedule a follow up appointment for re-evaluation this week. Return immediately to the emergency department if you develop any worsening or new concerning symptoms. Stand Alone Forms: Work Release Discharge Data Discharge Date/Time-TO BE ENTERED AT DEPARTURE: 03/28/21 17:43 Discharge Physician: Eva Garcia Medical Decision Making 41-year-old female with a history of absence seizures, migraines, depression who presents for 3 seizures this morning. Patient arrived to the ED crying hysterically being brought back in a wheelchair to room 3. She was screaming and crying as she was moved from the wheelchair to the bed. This lasted several minutes and then resolved. Patient was awake and alert and able to answer questions appropriately. Her vitals are within normal limits. She appears nontoxic without focal deficits. No meningeal signs. During my evaluation of patient in the room, she stated that she felt like she was going to have a seizure. She began crying hysterically which lasted a few minutes and then resolved. She was awake and alert and hemodynamically stable after this episode. She was able to follow most commands during this episode. Screening labs obtained on arrival and unremarkable. Patient had an MRI and MRA brain yesterday at [facility]. Discussed with swimming pool maintenance supervisor at [facility] and these images have not been read yet. The swimming pool maintenance supervisor also states that Dr. Park is unavailable to be contacted over the weekend. Will push these images to [facility] for review and discuss with [facility] neurology. Discussed with [facility] neurology. Patient is taking a low dose of Lamictal. He recommends decreasing her phenobarbital incrementally to eventually stopping and adding Keppra. Recommends 2 g Keppra IV load now. These recommendations were discussed with patient and she states she had previous adverse side effect of weight gain on Keppra and does not want to take this. Patient states she would rather not start any new medications and discuss any medication changes or additions with Dr. Park first on Tuesday. [facility] review of the MRI brain and MRA head and neck unremarkable. Able to obtain EEG from [facility] from 03/2020 which was normal and showed no evidence of epileptiform activity. Patient reassessed and she still complaining of headache. Will give a dose of Dilaudid. Patient complained of nausea on her reevaluation. We will give a dose of Compazine and attempt p.o. challenge. She states she has not taking the tramadol. She states she takes 50 mg of Lamictal q am. and 25 mg q pm. Patient reassessed and she feels much better and was able to tolerate p.o. Patient is requesting to go home. She had a few low blood pressure readings here which was fluid responsive and improved. She again declines starting any new medication and would rather speak to Dr. Park first on Tuesday. She is advised to continue her Lamictal and phenobarbital as directed at the time. Usual and customary return precautions given prior to discharge. Medical Records Medical records reviewed: Yes I reviewed the patient's medical records. Lab Data Lab results reviewed: Yes I reviewed the patient's lab results. Labs: Laboratory Tests Range/Units 03/28/21 03/28/21 03/28/21 10:15 10:15 16:15 WBC (4.4-10.8) 10^3/uL 7.48 RBC (3.93-5.22) 10^6/uL 4.87 Hgb (11.2-15.7) g/dL 14.9 Hct (36.0-46.0) % 45.6 MCV (80-95) fL 93.6 MCH (27.0-33.0) pg 30.6 MCHC (32.0-36.0) % 32.7 RDW (11.7-14.6) % 12.8 Plt Count (130-400) 10^3/uL 320 MPV (8.0-11.0) fL 9.8 Immature Gran % 0.3 Neutrophils % 50.0 Lymphocytes % 28.3 Monocytes % 8.4 Eosinophils % 11.5 Basophils % 1.5 Nucleated RBC % % 0 Absolute Neutrophils (1.2-6.7) 10^3/uL 3.74 Absolute Lymphocytes (1.2-3.4) 10^3/uL 2.12 Absolute Monocytes (0.1-0.8) 10^3/uL 0.63 Absolute Eosinophils (0.0-0.7) 10^3/uL 0.86 H Absolute Basophils (0.0-0.2) 10^3/uL 0.11 Sodium (136-145) mmol/L 140 Potassium (3.5-5.1) mmol/L 3.9 Chloride (98-107) mmol/L 106 Carbon Dioxide (21.0-32.0) mmol/L 25.6 Anion Gap (3-11) mmol/L 8.4 BUN (7-18) mg/dL 11 Creatinine (0.55-1.02) mg/dL 0.9 Estimated GFR/1.73 m2 (mL/min/1.73m2) >= 60.00 Glucose (74-106) mg/dL 88 Calcium (8.5-10.1) mg/dL 9.5 Total Bilirubin (0.2-1.0) mg/dL 0.2 AST (15-37) U/L 13 L ALT (14-59) U/L 23 Alkaline Phosphatase (46-116) U/L 62 Total Protein (6.4-8.2) g/dL 7.9 Albumin (3.4-5.0) g/dL 4.5 Urine Opiates Screen (Negative) Positive A Urine Methadone Screen (Negative) Negative Ur Barbiturates Screen (Negative) Positive A Ur Tricyclics Screen (Negative) Positive A Ur Amphetamines Screen (Negative) Negative U Benzodiazepines Scrn (Negative) Negative Urine Cocaine Screen (Negative) Negative Ur THC Screen (Negative) Positive A HPI General Mode of arrival: ambulatory . Date/Time Provider Initiated Documentation: 03/28/21 10:10 . Limitations to Documentation: no limitations . Information obtained by: patient . HPI Narrative: Patient is a 41-year-old female with a history of absence seizures, migraine, depression presents to the ED for seizure activity this morning. Patient boyfriend called the ED stating that patient had 3 seizures this morning. He states that around 850 this morning, patient appeared to freeze, with a blank stare followed by mouth twitching, gasping, choking, kicking, crying and gasping . He states this is consistent with her usual seizure like activity. He states she seemed to been calm down and this happened twice more. He states this is lasting longer than her usual seizure. Patient states she was diagnosed with absence seizures a few years ago but that she has had different seizures occurring once weekly over the past few weeks that have been occurring only during orgasms. She states usually she has laughing and crying episodes that occur after an orgasm. She states today's episode is unusual and that it occurred when she was sitting on the couch. She dates she took 0.5 mg Ativan this morning after her seizure activity. She states she is followed by neurologist Dr. Park at [facility] for her seizures and recently saw her last month. She states she has been taking Lamictal for several years but was recently started on phenobarbital. She states she has been taking his medication as directed and last took them this morning. She smokes marijuana occasionally but denies any other drug or alcohol use. She admits to increased stress in her job recently but states she has been eating and sleeping normally. She denies any recent illness including fever, vomiting, cough, chest pain, shortness of breath or diarrhea. Related Data Home Medications Medication Instructions Recorded Confirmed gabapentin 100 mg capsule 200 mg PO BID cap 08/27/20 03/28/21 lorazepam 0.5 mg tablet 0.5 mg PO DAILY PRN 08/27/20 03/28/21 topiramate 25 mg tablet 50 mg PO BID tab 08/27/20 03/28/21 biotin 2,500 mcg capsule 2,500 mcg PO DAILY 11/11/20 03/28/21 cholecalciferol (vitamin D3) 125 125 mcg PO DAILY 11/11/20 03/28/21 mcg (5,000 unit) capsule riboflavin (vitamin B2) 100 mg 100 mg PO DAILY 11/11/20 03/28/21 tablet aspirin 81 mg tablet,delayed 81 mg PO DAILY 11/15/20 03/28/21 release epinephrine 0.3 mg/0.3 mL 0.3 mg IM ONCE PRN 11/15/20 03/28/21 injection, auto-injector omeprazole 20 mg capsule,delayed 20 mg PO DAILY 11/15/20 03/28/21 release acetaminophen 500 mg tablet 1,000 mg PO Q6H PRN #90 tab 02/05/21 03/28/21 ibuprofen 800 mg tablet 800 mg PO Q8H PRN #90 tab 02/05/21 03/28/21 lamotrigine 25 mg tablet 50 mg PO QAM tab 02/05/21 03/28/21 omega-3 fatty acids 1,000 mg 1,000 mg PO DAILY 02/12/21 03/28/21 capsule vitamin B complex 1 tab PO DAILY 02/12/21 03/28/21 ibuprofen 600 mg PO Q6H PRN #90 tab 02/17/21 03/28/21 ondansetron HCl 4 mg tablet 4 mg PO Q6H PRN #10 tab 03/05/21 03/28/21 phenobarbital 30 mg tablet 30 mg PO BID 03/26/21 03/28/21 lamotrigine 25 mg PO HS 03/28/21 03/28/21 Previous Rx's Medication Instructions Recorded acetaminophen 500 mg tablet 1,000 mg PO Q6H PRN #90 tab 02/05/21 ibuprofen 800 mg tablet 800 mg PO Q8H PRN #90 tab 02/05/21 ibuprofen 600 mg PO Q6H PRN #90 tab 02/17/21 ondansetron HCl 4 mg tablet 4 mg PO Q6H PRN #10 tab 03/05/21 Allergies Allergy/AdvReac Type Severity Reaction Status Date / Time azithromycin Allergy Severe THROAT Verified 03/28/21 10:19 CLOSES UP propranolol Allergy Severe drops BP Verified 03/28/21 10:19 quickly shellfish derived Allergy Severe Anaphylaxis Verified 03/28/21 10:19 adhesive Allergy Intermediate blisters, Verified 03/28/21 10:19 silk tape only per patient latex Allergy Intermediate Hives, Verified 03/28/21 10:19 lips mariam soy Allergy Intermediate RASH Verified 03/28/21 10:19 albuterol Allergy Unknown liquid Verified 03/28/21 10:22 codeine AdvReac Severe GI UPSET Verified 03/28/21 10:19 hydrocodone AdvReac Severe GI UPSET Verified 03/28/21 10:19 erythromycin base AdvReac Intermediate Diarrhea, Verified 03/28/21 10:22 stomach General HAVEN: 3 Review of Systems All systems reviewed & are unremarkable except as noted in HPI and below Constitutional Constitutional: Reports as per HPI, Denies chills and Denies fever(s) Eyes Eyes: Denies blurry vision ENT Ears, Nose, Mouth, and Throat: Denies dizziness, Denies sore throat and Denies throat swelling Cardiovascular Cardiovascular: Denies chest pain and Denies dyspnea Respiratory Respiratory: Denies cough and Denies dyspnea Gastrointestinal Gastrointestinal: Denies abdominal pain, Denies diarrhea and Denies vomiting Genitourinary Genitourinary: Denies hematuria and Denies dysuria Musculoskeletal Musculoskeletal: Denies back pain and Denies numbness Integumentary/Breasts Skin/Breast: Denies lesions and Denies rash Neurologic Neurologic: Denies dizziness, Denies localized weakness, Denies numbness and Reports convulsions Allergic/Immunologic Allergic/Immunologic: Denies throat swelling [facility] Medical History (Updated 03/28/21 @ 15:25 by Eva Garcia DO) Carpal tunnel syndrome Cholelithiasis Classical migraine (~10/03/15) Cystocele (~01/18/17) De Quervain's disease (tenosynovitis) Depression (~10/03/15) Dry eye syndrome of bilateral lacrimal glands Erosive gastritis (~03/10/18) Hemiplegic migraine, not intractable, 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, left eye Median nerve entrapment Numbness and tingling of left side of face Migrainous s/s Pelvic adhesions (~01/18/17) Pityriasis rosea Rectocele (~01/18/17) Regular astigmatism, bilateral Retinal vasculitis, 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, left eye Vaginal prolapse (~01/18/17) Vitreous degeneration, right eye Surgical History (Updated 03/26/21 @ 15:25 by Karol Flood DO) H/O section x3 H/O gynecological procedure Uterine Oblation H/O laparoscopy (~01/18/17) colpopexy, mesh sacral, lysis of adhesions H/O wisdom tooth extraction History of anterior colporrhaphy post rectocele with or w/o perineorrhaphy History of bladder suspension procedure (~04/29/15) History of esophagogastroduodenoscopy (EGD) (~04/29/17) also 02/2018 History of hysterectomy History of laparoscopic cholecystectomy (~02/18/21) Hx of tonsillectomy (~04/29/14) Family History Mother Asthma Depression Hyperlipidemia Hypertension Father Depression Hyperlipidemia Hypertension Brother Alcohol abuse Asthma Hyperlipidemia Hypertension Son Asthma Depression Social History (Updated 02/06/21 @ 08:02 by Yao Gandhi) Smoking/Tobacco Use Status: Current every day Tobacco Type: cigarettes Tobacco: How many years used: 2 Quit status: considering quitting Second Hand Exposure: Yes Smoking risk assessment performed?: Yes Alcohol Intake: current Alcohol Intake frequency: holidays/special occasions only Alcohol type: hard liquor Drug use: Socially Substance use type: marijuana Details: Last marijuana use 02/16 Caregiver/Support person: No Household members: significant other, children and other Details: CLIENT Communication Needs: Corrective Lenses Do you need help understanding health information?: Rarely Pets and animals: Yes Pets and animals: cat(s) and dog(s) Sexually active: Yes Do you think of yourself as: straight/heterosexual Current gender identity: female What is your relationship status?: living with partner How often do you talk on the phone with friends or family?: once per week How often do you get together with friends or relatives?: once per week How often do you attend congregational or islam services?: decline to answer Do you belong to any clubs or organized social groups?: no Panel score (0-1 are the most socially isolated patients): 1 What type of physical activity do you participate in: decline to answer Renate/Judaism: No preference Special renate needs: No Seatbelt use: sometimes Helmet use: No (N/A) Drive 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 Do you feel safe at home: Yes Do you feel safe in your relationship?: Yes Exam Const General: cooperative, healthy appearing and no acute distress HENMT Head: normal to inspection Face and sinus: normal facial exam Eyes General: appearance normal, both eyes and all related structures Pupils: PERRL EOM: EOM intact bilaterally Neck Neck: normal visual inspection and No submandibular swelling Lymphatic: no lymphadenopathy noted Chest Chest: normal inspection of the chest and no tenderness Resp Effort & Inspection: normal respiratory effort and able to speak in complete sentences Auscultation: clear to auscultation bilaterally Cardio Rate: regular rate Rhythm: regular rhythm GI Inspection: normal to inspection Palpation: soft, not firm, not rigid and nontender Auscultation: normal bowel sounds Skin General skin exam: no rashes or lesions noted Neuro General: patient alert, patient awake, patient oriented x3, moves all extremities, no meningeal signs and no focal motor deficits Cranial Nerves: CN's II-XI intact bilaterally Cognition: normal cognition Speech: speech normal Motor: muscle tone normal throughout and strength 5/5 throughout Sensory Exam: no sensory deficits noted Extrem General: normal to inspection, full ROM, capillary refill normal, no calf tenderness bilaterally and no edema Psych Appearance: grossly normal Mental Status: mental status grossly normal Speech and Movement: speech and movement normal Affect: normal affect
[2021-03-28 10:30] LABS: Abs Immature Grans 0.02 10^3/uL (0.0-0.06); Absolute Basophil Count 0.11 10^3/uL (0.0-0.2); Absolute Eosinophil Count 0.86 10^3/uL (0.0-0.7); Absolute Lymphocyte Count 2.12 10^3/uL (1.2-3.4); Absolute Monocyte Count 0.63 10^3/uL (0.1-0.8); Absolute Neutrophil Count 3.74 10^3/uL (1.2-6.7); Basophils % 1.5; Eosinophils % 11.5; HCT 45.6 % (36.0-46.0); HGB 14.9 g/dL (11.2-15.7); Immature Grans % 0.3; Lymphocytes % 28.3; MCH 30.6 pg (27.0-33.0); MCHC 32.7 % (32.0-36.0); MCV 93.6 fL (80-95); MPV 9.8 fL (8.0-11.0); Monocytes % 8.4; Nucleated RBC 0 %; Platelet Count 320 10^3/uL (130-400); RBC 4.87 10^6/uL (3.93-5.22); RDW 12.8 % (11.7-14.6); RDW-SD 44.3 fL; WBC 7.48 10^3/uL (4.4-10.8)
[2021-03-28] MEDS: LORazepam 2 MG/ML VIAL 1 MG IVP (10:42)
[2021-03-28 10:43] LABS: ALT 23 U/L (14-59); AST 13 U/L (15-37); Albumin 4.5 g/dL (3.4-5.0); Alkaline Phosphatase 62 U/L (46-116); Anion Gap 8.4 mmol/L (3-11); BUN 11 mg/dL (7-18); Bilirubin, Total 0.2 mg/dL (0.2-1.0); CO2 25.6 mmol/L (21.0-32.0); CREATININE 0.9 mg/dL (0.55-1.02); Calcium 9.5 mg/dL (8.5-10.1); Chloride 106 mmol/L (98-107); Glucose 88 mg/dL (74-106); Potassium 3.9 mmol/L (3.5-5.1); Sodium 140 mmol/L (136-145); Total Protein 7.9 g/dL (6.4-8.2)
[2021-03-28] MEDS: Normal Saline 1,000 ML 1000 ML IV ×2 (11:15→12:14)
--- NOTE | 2021-03-28 11:31 | NUR.NOTE ---
Nursing Note: Neurologist, Mary Park MD: [place], [place] [phone].
[2021-03-28] MEDS: ACETAMINOPHEN 1,000 MG/100 ML BTL 400 MG IVPB (12:19)
[2021-03-28] MEDS: Ketorolac 30 MG/ML VIAL IVP (12:19)
[2021-03-28] MEDS: Dexamethasone 10 MG/ML VIAL IVP (12:19)
[2021-03-28] MEDS: HYDROmorphone 2 MG/ML VIAL 1 MG IVP (14:12)
[2021-03-28] MEDS: diphenhydrAMINE 50 MG/ML VIAL 25 MG IVP (15:29)
[2021-03-28] MEDS: Prochlorperazine 10 MG/2 ML VIAL IVP (15:30)
[2021-03-28 17:13] LABS: *AMPHETAMINES SCREEN URINE Negative (Negative); *BARBITURATES SCREEN URINE Positive (Negative); *BENZODIAZEPINES SCREEN URINE Negative (Negative); Cannabinoids THC Positive (Negative); Cocaine Screen,Urine Negative (Negative); METHADONE URINE SCREEN Negative (Negative); OPIATES URINE SCREEN Positive (Negative)
[2021-03-28 17:18] LABS: Tricyclic Antidepressants Positive (Negative)
== END 2021-03-28 17:43 | disposition home or self-care (01) ==
PROVIDERS: Emergency Provider Physician Assistant
DX: G40.909 Epilepsy, unspecified, not intractable, without status epilepticus (principal); R11.0 Nausea
CPT/HCPCS: 36415; 80053; 80307; 96361; 96365; 96375; 99284; 85025; 99285; J0131; J0780; J1100; J1200; J1885; J2060

== ENCOUNTER 2021-07-02 02:42 | Outpatient (CLI) | payer BC, SELFPAY ==
--- NOTE | 2021-07-02 06:30 | DI.MAMMO_ITS ---
Exam(s) MAMMO SCREENING EXAM: MAMMO SCREENING CLINICAL HISTORY: screening,z12.39 TECHNIQUE: Mammograms were interpreted according to the usual protocol including computer analysis w boo-box CAD system, tomosynthesis and C-view imaging. COMPARISON: No exams were available for comparison FINDINGS: The breasts are composed of scattered fibroglandular densities, Breast Density category B. No suspicious masses or suspicious microcalcifications are seen. No skin thickening or abnormal axillary lymph nodes are seen. There has been no significant change from prior exams. IMPRESSION: BI-RADS Category 1, Negative mammogram Yearly screening mammography is recommended. Breast Density - Category B, scattered fibroglandular densities. A negative radiographic report should not delay biopsy if a dominant or clinically suspicious mass is present. Up to ten percent of cancers are not identified on mammography. A negative report may reinforce clinical impression. Adenosis and dense breasts may obscure an underlying neoplasm. False positive reports average 6 to 10%. Patient will receive a letter notifying them of these results.
== END 2021-07-02 03:02 ==
DX: Z12.31 Encounter for screening mammogram for malignant neoplasm of breast (principal)
CPT/HCPCS: 77063; 77067

== ENCOUNTER 2021-10-13 04:27 | Outpatient (CLI) | payer MEDICAID, SELFPAY ==
[2021-10-13 12:29] LABS: TSH (W/Ref FT4) 1.41 uIU/mL (0.36-3.74)
== END 2021-10-13 04:28 | disposition home or self-care (01) ==
LOC: LBO 04:27
PROVIDERS: Visit Provider Nurse Practitioner Family
DX: N95.1 Menopausal and female climacteric states (principal); R53.83 Other fatigue
CPT/HCPCS: 36415; 84443

== ENCOUNTER 2021-12-01 03:17 | Outpatient (CLI) | payer MEDICAID, SELFPAY ==
[2021-12-01 22:49] LABS: FSH 6.2 mIU/mL (See Note)
== END 2021-12-01 03:18 | disposition home or self-care (01) ==
LOC: LOS 03:17
DX: N95.1 Menopausal and female climacteric states (principal)
CPT/HCPCS: 36415; 83001

== ENCOUNTER 2022-03-12 15:18 | Emergency (ER) | payer MEDICAID, SELFPAY ==
[2022-03-12 15:19] VITALS: BP 103/61; PULSE 84; RESP 16; TEMP 37.1; O2SAT 99
--- NOTE | 2022-03-12 15:30 | RT.EKG_ITS ---
APPROVED REPORT Exam: Resting ECG Reason for Exam: seizure? Patient Location: E HR:80 bpm ECG Measurements Heart Rate 80 AXIS WY 144 P 61 QRSd 90 QRS 54 QT 380 T 58 QTc 438 Conclusion Sinus rhythm...normal P axis, V-rate 60- 99. Sinus. Normal axis. No STEMI. I have reviewed and interpreted ECG and agree with software generated interpretation.
--- NOTE | 2022-03-12 15:34 | ED.GENADUL_ITS ---
Discharge Plan Disposition Patient Disposition: HOME Condition: Improving Discharge Details Clinical Impression: Seizure-like activity, Psychogenic nonepileptic seizure Primary Care Provider: Marci Cruz ED Provider: Eva Garcia Home Meds and New Rx's Prescriptions: Continued vitamin B complex [B Complex-Vitamin B12] Tablet 1 tab PO DAILY omega-3 fatty acids [Fish Oil Concentrate] 1,000 mg capsule 1,000 mg PO DAILY acetaminophen 500 mg tablet 1,000 mg PO Q6H PRN (Reason: fever) Qty: 90 0RF ibuprofen 800 mg tablet 800 mg PO Q8H PRN (Reason: pain) Qty: 90 1RF topiramate 50 mg tablet 50 mg PO BID Label Comments: TAKE ONE TABLET BY MOUTH TWICE A DAY lorazepam 0.5 mg tablet 0.5 mg PO DAILY PRN (Reason: anxiety) Qty: 30 0RF riboflavin (vitamin B2) 100 mg tablet 100 mg PO DAILY cholecalciferol (vitamin D3) 125 mcg (5,000 unit) capsule 125 mcg PO DAILY folic acid 400 mcg tablet 0.4 mg PO DAILY duloxetine [Cymbalta] 60 mg capsule,delayed release(DR/EC) 60 mg PO DAILY lorazepam 2 mg/mL solution 2 mg IM ONCE Qty: 1 0RF Rx Instructions: as a single dose omeprazole 20 mg capsule,delayed release(DR/EC) 20 mg PO DAILY epinephrine [EpiPen 2-Sheldon] 0.3 mg/0.3 mL auto-injector 0.3 mg IM ONCE PRN Rx Instructions: as a single dose Discharge Instructions Instructions: Recurrent Seizures in Adults (ED) Additional Instructions: Your lab work today is reassuring and shows no evidence of acute concerning or significant findings. Drink plenty of fluids and get plenty of rest. Follow-up with [facility] neurology for continued management of your psychogenic seizures and for referral to psychiatry as planned. You can start your Cymbalta this evening as recommended by your [facility] neurologist. Return immediately to the emergency department if you develop any worsening or new concerning symptoms. Discharge Data Discharge Date/Time-TO BE ENTERED AT DEPARTURE: 03/12/22 19:29 Discharge Physician: Eva Garcia Medical Decision Making 42-year-old female who is postmenopausal with a history of hysterectomy, migraines and psychogenic nonepileptic/functional seizures followed by neurology at [facility] presents for report of seizure at PCP office prior to arrival. PCP office note states that patient appeared to have seizure-like activity lasting for 15 minutes for which she was given ativan PO but maintain normal consciousness and was speaking gibberish during this episode. Vitals within normal limits. Patient states her headache is improving. Review of [facility] records note that she has had a normal EEG and a diagnosis of psychogenic nonepileptic/functional seizures. As patient's headache is improving and she has no focal deficits on exam, do not see an indication for head imaging at this time. She has had an MRI of her brain in 2019 which was unremarkable per [facility] records. She appears comfortable and nontoxic. No meningeal signs. Will obtain screening labs, give bolus IV fluids and IV Tylenol and contact [facility] neurology for any further recommendations. Labs reviewed and unremarkable. Case discussed with [facility] neurology on-call -- no other acute recommendations - patient can proceed with starting her Cymbalta this evening - they note that a referral to psychiatry had been placed previously for her psychogenic seizures and will follow up with her for continued medication management. Usual and customary return precautions given prior to to discharge. Medical Records Medical records reviewed: Yes I reviewed the patient's medical records. Lab Data Lab results reviewed: Yes I reviewed the patient's lab results. Labs: Laboratory Tests Range/Units 03/12/22 03/12/22 15:51 15:51 WBC (4.4-10.8) 10^3/uL 6.07 RBC (3.93-5.22) 10^6/uL 3.99 Hgb (11.2-15.7) g/dL 12.5 Hct (36.0-46.0) % 37.3 MCV (80-95) fL 94 MCH (27.0-33.0) pg 31.3 MCHC (32.0-36.0) % 33.5 RDW (11.7-14.6) % 13.1 Plt Count (130-400) 10^3/uL 233 MPV (8.0-11.0) fL 9.0 Immature Gran % 0.2 Neutrophils % 56.7 Lymphocytes % 33.9 Monocytes % 8.7 Eosinophils % 0.2 Basophils % 0.3 Nucleated RBC % (0.0-0.3) % 0.0 Absolute Neutrophils (1.2-6.7) 10^3/uL 3.44 Absolute Lymphocytes (1.2-3.4) 10^3/uL 2.06 Absolute Monocytes (0.1-0.8) 10^3/uL 0.53 Absolute Eosinophils (0.0-0.7) 10^3/uL 0.01 Absolute Basophils (0.0-0.2) 10^3/uL 0.02 Sodium (136-145) mmol/L 141 Potassium (3.5-5.1) mmol/L 3.8 Chloride (98-107) mmol/L 108 H Carbon Dioxide (21.0-32.0) mmol/L 27.4 Anion Gap (3-11) mmol/L 5.6 BUN (7-18) mg/dL 18 Creatinine (0.55-1.02) mg/dL 0.8 Est GFR (CKD-EPI 2020) (mL/min/1.73m2) 94.28 Glucose (74-106) mg/dL 92 Calcium (8.5-10.1) mg/dL 8.7 Total Bilirubin (0.2-1.0) mg/dL 0.2 AST (15-37) U/L 13 L ALT (14-59) U/L 25 Alkaline Phosphatase (46-116) U/L 48 Total Protein (6.4-8.2) g/dL 6.7 Albumin (3.4-5.0) g/dL 3.6 ECG Data Interpretation: Rate of 80, sinus, normal axis, no STEMI. HPI General Mode of arrival: ambulatory . Date/Time Provider Initiated Documentation: 03/12/22 15:29 . Limitations to Documentation: no limitations . Information obtained by: patient . HPI Narrative: Patient is a 42-year-old female who is postmenopausal with a history of hysterectomy and a history of psychogenic nonepileptic seizures who presents with a report of seizure at her PCP office prior to arrival. Patient states she was at her PCP office to discuss hormone testing and states she had a seizure. The PCP note states that patient was noted to have seizure-like activity, speaking gibberish with complaint of a headache but maintained consciousness. Her seizure-like activity lasted approximately 15 minutes and she was given a dose of Ativan p.o. And transported here for further evaluation. Review of [facility] records note that patient has had negative EEGs and is followed by neurology for a diagnosis of psychogenic nonepileptic/functional seizures treated with Topamax and Effexor. Patient states she usually has absence like seizures occurring 1-2 times weekly and tonic-clonic type seizures which occur every 2 to 3 weeks. She states for the past 3 days she has had episodes occurring 1-2 times daily in which she is felt emotional, angry, and has been snapping at people and crying. She states yesterday she was outside talking to her chickens when she felt upset and woke up on the floor with rule on the ground. She states she has talked to her neurologist Dr. Ruelas about these episodes and was advised to stop taking her Effexor and start Cymbalta. She states she stopped taking her Effexor last night and is to start taking her Cymbalta tonight. She states today when she was at her PCP office she was sitting in the chair when she felt tingling in her right hand consistent with her usual aura of her seizure episodes. She states she then started speaking gibberish with shaking and then developed a headache. She is unsure of any loss of consciousness. She denies any recent fevers, illness including vomiting, diarrhea, new medications or recent trauma or injury. She states her headache is improving. Related Data Home Medications Medication Instructions Recorded Confirmed cholecalciferol (vitamin D3) 125 125 mcg PO DAILY 11/11/20 03/12/22 mcg (5,000 unit) capsule riboflavin (vitamin B2) 100 mg 100 mg PO DAILY 11/11/20 03/12/22 tablet epinephrine 0.3 mg/0.3 mL 0.3 mg IM ONCE PRN 11/15/20 03/12/22 injection, auto-injector (EpiPen 2-Sheldon) omeprazole 20 mg capsule,delayed 20 mg PO DAILY 11/15/20 03/12/22 release acetaminophen 500 mg tablet 1,000 mg PO Q6H PRN fever #90 tabs 02/05/21 03/12/22 ibuprofen 800 mg tablet 800 mg PO Q8H PRN pain #90 tabs 02/05/21 03/12/22 omega-3 fatty acids 1,000 mg 1,000 mg PO DAILY 02/12/21 03/12/22 capsule (Fish Oil Concentrate) vitamin B complex (B 1 tab PO DAILY 02/12/21 03/12/22 Complex-Vitamin B12 tablet) folic acid 400 mcg tablet 0.4 mg PO DAILY 06/16/21 03/12/22 lorazepam 0.5 mg tablet 0.5 mg PO DAILY PRN anxiety #30 11/09/21 03/12/22 tabs topiramate 50 mg tablet 50 mg PO BID 11/09/21 03/12/22 duloxetine 60 mg capsule,delayed 60 mg PO DAILY 03/12/22 03/12/22 release (Cymbalta) lorazepam 2 mg/mL injection 2 mg IM ONCE #1 mL 03/12/22 solution Previous Rx's Medication Instructions Recorded acetaminophen 500 mg tablet 1,000 mg PO Q6H PRN fever #90 tabs 02/05/21 ibuprofen 800 mg tablet 800 mg PO Q8H PRN pain #90 tabs 02/05/21 lorazepam 0.5 mg tablet 0.5 mg PO DAILY PRN anxiety #30 11/09/21 tabs lorazepam 2 mg/mL injection 2 mg IM ONCE #1 mL 03/12/22 solution Allergies Allergy/AdvReac Type Severity Reaction Status Date / Time azithromycin Allergy Severe THROAT Verified 03/12/22 14:42 CLOSES UP propranolol Allergy Severe drops BP Verified 03/12/22 14:42 quickly shellfish derived Allergy Severe Anaphylaxis Verified 03/12/22 14:42 adhesive Allergy Intermediate blisters, Verified 03/12/22 14:42 silk tape only per patient latex Allergy Intermediate Hives, Verified 03/12/22 14:42 lips mariam albuterol Allergy Unknown liquid Verified 03/12/22 14:42 codeine AdvReac Severe GI UPSET Verified 03/12/22 14:42 hydrocodone AdvReac Severe GI UPSET Verified 03/12/22 14:42 erythromycin base AdvReac Intermediate Diarrhea, Verified 03/12/22 14:42 stomach General Stated Complaint: Seizure HAVEN: 3 Review of Systems All systems reviewed & are unremarkable except as noted in HPI and below Constitutional Constitutional: Denies chills, Denies excessive sweating, Denies fatigue, Denies fever(s), Denies weakness and Denies weight loss Eyes Eyes: Reports system reviewed and no additional complaints, except as documented and Denies blurry vision ENT Ears, Nose, Mouth, and Throat: Denies vertigo, Denies dizziness, Denies otalgia, Denies nasal congestion, Denies sore throat and Denies throat swelling Cardiovascular Cardiovascular: Denies chest pain, Denies syncope, Denies rapid heart rate and Denies dyspnea Respiratory Respiratory: Denies chest congestion, Denies cough, Denies pain on inspiration and Denies dyspnea Gastrointestinal Gastrointestinal: Denies abdominal pain, Denies diarrhea and Denies vomiting Genitourinary Genitourinary: Denies hematuria, Denies dysuria and Denies flank pain Musculoskeletal Musculoskeletal: Denies back pain and Denies joint swelling Integumentary/Breasts Skin/Breast: Denies lesions and Denies rash Neurologic Neurologic: Denies behavioral changes, Denies confusion, Denies vertigo, Denies dizziness, Denies syncope, Denies localized weakness, Reports convulsions and Denies weakness Psychiatric Psychiatric: Denies behavioral changes, Denies confusion and Denies depression Endocrine Endocrine: Denies excessive sweating and Denies fatigue Hematologic/Lymphatic Hematologic/Lymphatic: Denies easy bruising and Denies lymphadenopathy Allergic/Immunologic Allergic/Immunologic: Denies throat swelling PFSH All Active Problems (Updated 03/12/22 @ 18:45 by Eva Garcia DO) Seizure-like activity (Acute) Psychogenic nonepileptic seizure (Acute) Psychogenic nonepileptic seizure (Chronic) Per Dr. Ata Young 11/06/21 at [facility] Perimenopausal (Acute) Pityriasis rosea (Acute) Cholelithiasis (Acute) Numbness and tingling of left side of face (Acute) Migrainous s/s Serous detachment of retinal pigment epithelium, left eye (Acute) Vitreous degeneration, right eye (Acute) Regular astigmatism, bilateral (Acute) Hypermetropia, left eye (Acute) Dry eye syndrome of bilateral lacrimal glands (Acute) Erosive gastritis (Acute ~03/10/18) Hemiplegic migraine, not intractable, without status migrainosus (Acute ~04/16/16) Classical migraine (Acute ~10/03/15) Depression (Chronic ~10/03/15) Abdominal pain (Acute) Lumbar back pain with radiculopathy affecting left lower extremity (Acute) Medical History Carpal tunnel syndrome De Quervain's disease (tenosynovitis) Median nerve entrapment Rectocele (~01/18/17) Retinal vasculitis, left eye Surgical History H/O section x3 H/O gynecological procedure Uterine Oblation H/O laparoscopy (~01/18/17) colpopexy, mesh sacral, lysis of adhesions H/O wisdom tooth extraction History of anterior colporrhaphy post rectocele with or w/o perineorrhaphy History of bladder suspension procedure (~04/29/15) History of esophagogastroduodenoscopy (EGD) (~04/29/17) also 02/2018 History of hysterectomy History of laparoscopic cholecystectomy (~02/18/21) Hx of tonsillectomy (~04/29/14) Family History Mother Asthma Depression Hyperlipidemia Hypertension Father Depression Hyperlipidemia Hypertension Brother Alcohol abuse Asthma Hyperlipidemia Hypertension Son Asthma Depression Social History Smoking/Tobacco Use Status: Former Tobacco Use Quit status: considering quitting Second Hand Exposure: Yes Smoking risk assessment performed?: Yes Alcohol Intake: current Alcohol Intake frequency: a few times a week Alcohol type: hard liquor Drug use: Daily Substance use type: marijuana Caregiver/Support person: No Household members: significant other, children and other Details: CLIENT Communication Needs: Corrective Lenses Do you need help understanding health information?: Rarely Pets and animals: Yes Pets and animals: cat(s) and dog(s) Sexually active: Yes Do you think of yourself as: straight/heterosexual Current gender identity: female What is your relationship status?: living with partner How often do you talk on the phone with friends or family?: once per week How often do you get together with friends or relatives?: once per week How often do you attend catholic or mandaeism services?: decline to answer Do you belong to any clubs or organized social groups?: no Panel score (0-1 are the most socially isolated patients): 1 What type of physical activity do you participate in: decline to answer Renate/Cheondoism: No preference Special renate needs: No Seatbelt use: sometimes Helmet use: No (N/A) Drive intox or ride w/intox delivery driver assistant: No Do you feel safe at home: Yes Do you feel safe in your relationship?: Yes Exam Const General: cooperative and healthy appearing Orientation: alert, awake and oriented x3 HENMT Head: normal to inspection Ears: hearing grossly normal bilaterally and external ears normal General nose exam: external nose normal Face and sinus: normal facial exam Mouth: oral mucosae normal Teeth and gingiva: dentition normal Throat: posterior oropharynx normal Eyes General: appearance normal, both eyes and all related structures Eyelids: eyelids normal Pupils: PERRL EOM: EOM intact bilaterally Neck Neck: normal visual inspection Lymphatic: no lymphadenopathy noted Chest Chest: normal inspection of the chest Resp Effort & Inspection: normal respiratory effort and able to speak in complete sentences Auscultation: clear to auscultation bilaterally Cardio Rate: regular rate Rhythm: regular rhythm GI Inspection: normal to inspection Palpation: soft, not firm, no guarding, no hepatosplenomegaly, no masses and nontender Auscultation: normal bowel sounds Skin General skin exam: no rashes or lesions noted Neuro General: patient alert, patient awake, patient oriented x3, moves all extremities and no meningeal signs Cranial Nerves: CN's II-XI intact bilaterally Cognition: normal cognition Speech: speech normal Gait: normal gait Motor: muscle tone normal throughout and strength 5/5 throughout Sensory Exam: no sensory deficits noted Extrem General: normal to inspection, full ROM and capillary refill normal Psych Appearance: grossly normal Mental Status: mental status grossly normal Speech and Movement: speech and movement normal Affect: normal affect Thought Process: normal Course Vital Signs Vital signs: Vital Signs Temperature 98.8 F 03/12/22 15:19 Pulse 84 03/12/22 15:19 Respiratory Rate 16 03/12/22 15:19 Blood Pressure 103/61 03/12/22 15:19 Pulse Oximetry 99 03/12/22 15:19 Temperature 98.8 F 03/12/22 15:19 Temperature Source Skin 03/12/22 15:19 Pulse 84 03/12/22 15:19 Respiratory Rate 16 03/12/22 15:19 Blood Pressure 103/61 03/12/22 15:19 Blood Pressure Position Supine 03/12/22 15:19 Pulse Oximetry 99 03/12/22 15:19 Oxygen Delivery Method Room Air 03/12/22 15:19 Oxygen Flow Rate 0 03/12/22 15:19 Pain Level 5 03/12/22 15:19 Comment 03/12/22 15:19
[2022-03-12 15:58] LABS: Abs Immature Grans 0.01 10^3/uL (0.0-0.06); Absolute Basophil Count 0.02 10^3/uL (0.0-0.2); Absolute Eosinophil Count 0.01 10^3/uL (0.0-0.7); Absolute Lymphocyte Count 2.06 10^3/uL (1.2-3.4); Absolute Monocyte Count 0.53 10^3/uL (0.1-0.8); Absolute Neutrophil Count 3.44 10^3/uL (1.2-6.7); Basophils % 0.3; Eosinophils % 0.2; HCT 37.3 % (36.0-46.0); HGB 12.5 g/dL (11.2-15.7); Immature Grans % 0.2; Lymphocytes % 33.9; MCH 31.3 pg (27.0-33.0); MCHC 33.5 % (32.0-36.0); MCV 94 fL (80-95); Monocytes % 8.7; Neutrophils % 56.7; Platelet Count 233 10^3/uL (130-400); RBC 3.99 10^6/uL (3.93-5.22); RDW 13.1 % (11.7-14.6); RDW-SD 45.1 fL; WBC 6.07 10^3/uL (4.4-10.8)
[2022-03-12] MEDS: Normal Saline 1,000 ML 1000 ML IV (16:08)
[2022-03-12 16:14] LABS: ALT 25 U/L (14-59); AST 13 U/L (15-37); Albumin 3.6 g/dL (3.4-5.0); Alkaline Phosphatase 48 U/L (46-116); Anion Gap 5.6 mmol/L (3-11); BUN 18 mg/dL (7-18); Bilirubin, Total 0.2 mg/dL (0.2-1.0); CO2 27.4 mmol/L (21.0-32.0); CREATININE 0.8 mg/dL (0.55-1.02); Calcium 8.7 mg/dL (8.5-10.1); Chloride 108 mmol/L (98-107); Estimated GFR 94.28 (mL/min/1.73m2); Glucose 92 mg/dL (74-106); Potassium 3.8 mmol/L (3.5-5.1); Sodium 141 mmol/L (136-145); Total Protein 6.7 g/dL (6.4-8.2)
[2022-03-12] MEDS: ACETAMINOPHEN 1,000 MG/100 ML BTL 400 MG IVPB (16:28)
== END 2022-03-12 19:29 | disposition home or self-care (01) ==
PROVIDERS: Emergency Provider Physician Assistant
DX: R56.9 Unspecified convulsions (principal); N95.9 Unspecified menopausal and perimenopausal disorder; Z90.710 Acquired absence of both cervix and uterus; Z87.891 Personal history of nicotine dependence
CPT/HCPCS: 36415; 80053; 81025; 93005; 96361; 96374; 99284; 85025; 93010; J0131

== ENCOUNTER → 2022-05-20 02:38 | Outpatient (CLI) | payer MEDICAID, SELFPAY ==
--- NOTE | 2022-05-20 07:00 | DI.RAD_ITS ---
Exam(s) XR CLAVICLE LT EXAM: XR CLAVICLE LT CLINICAL HISTORY: evaluate fx,PAIN LT CLAVICLE,M89.8X1 TECHNIQUE: 2D digital imaging was performed of the left clavicle. Two images were obtained. AP and axial views were obtained. COMPARISON: No exams were available for comparison FINDINGS: BONES: No acute fracture is present. No bony destructive lesion is seen. JOINTS: No dislocation present. SOFT TISSUE: Normal. IMPRESSION: Unremarkable radiographs of the left clavicle. DATA REPOSITORY: RADIATION DOSE DELIVERED:
--- NOTE | 2022-05-20 07:00 | DI.RAD_ITS ---
Exam(s) XR SHOULDER LT COMPLETE 2+V EXAM: XR SHOULDER LT COMPLETE 2+V CLINICAL HISTORY: evaluate fx/dislocation, LT SHOULDER PAIN,M25.512. TECHNIQUE: 2D digital imaging was performed of the left shoulder. Five images were obtained. AP, G rashey, Y-view and axillary views were obtained. COMPARISON: No exams were available for comparison FINDINGS: BONES: No acute fracture is present. No bony destructive lesion is seen. JOINTS: No dislocation present. SOFT TISSUE: Normal. IMPRESSION: Unremarkable radiographs of the left shoulder. DATA REPOSITORY: RADIATION DOSE DELIVERED:
== END ==
PROVIDERS: PCP Nurse Practitioner Family; Visit Provider Nurse Practitioner Family
DX: M25.512 Pain in left shoulder (principal); M89.8X1 Other specified disorders of bone, shoulder
CPT/HCPCS: 73000; 73030

== ENCOUNTER 2022-09-20 02:39 | Outpatient (CLI) | payer MEDICAID, SELFPAY ==
--- NOTE | 2022-09-20 07:30 | DI.MAMMO_ITS ---
Exam(s) MAMMO SCREENING EXAM: MAMMO SCREENING CLINICAL HISTORY: screening,z12.39 TECHNIQUE: Bilateral full field digital CC and MLO mammographic images were obtained with 3D tomosyn thesis and utilizing computer aided detection (CAD). COMPARISON: Available for comparison. FINDINGS: Masses/Architectural Distortion: There are a few new well-circumscribed nodules in the retroareolar r egion of the right breast. Microcalcifications: No suspicious pleomorphic-type are seen. Skin Thickening/Nipple Retraction: None. IMPRESSION: 1. New small well-circumscribed nodules in the retroareolar region of the right breast. The largest measures 6 mm. 2. This area should be further evaluated with spot compression views. Ultrasound should be obtained at that time. BI-RADS Category 0 - Assessment Incomplete: Need additional imaging evaluation Breast Density - Category B - Scattered areas of fibroglandular density Breast density category C or D implies that the patient has dense breast tissue. Dense breast tissue is very common and is not abnormal but dense breast tissue can make it harder to find cancer on a ma mmogram. Also, dense breast tissue may increase their breast cancer risk. This information about the result of the mammogram report was provided to the patient to raise their awareness. Use this report when you speak with the patient about their risks for breast cancer, which includes their family hist ory. At that time, you may recommend for more screening tests (Ultrasound or MRI) as they might be us eful based on their risk. A negative radiographic report should not delay biopsy if a dominant or clinically suspicious mass is present. Up to ten percent of cancers are not identified on mammography. A negative report may reinforce clinical impression. Adenosis and dense breasts may obscure an underlying neoplasm. False positive reports average 6 to 10%. Patient will receive a letter notifying them of these results.
== END 2022-09-20 02:59 ==
PROVIDERS: PCP Nurse Practitioner Family; Visit Provider Nurse Practitioner Family
DX: Z12.31 Encounter for screening mammogram for malignant neoplasm of breast (principal); R92.8 Other abnormal and inconclusive findings on diagnostic imaging of breast
CPT/HCPCS: 77063; 77067

== ENCOUNTER 2022-09-28 01:37 | Outpatient (CLI) | payer MEDICAID, SELFPAY ==
--- NOTE | 2022-09-28 | DI.US_ITS ---
Exam(s) MG MAMMO SCREEN CALL BACK UNI US BREAST RT LIMITED EXAM: MG MAMMO SCREEN CALL BACK UNI and U/S breast RT limited CLINICAL HISTORY: F/U MAMMO, R92.8,NEW SMALL RT BREAST NODULES. TECHNIQUE: Craniocaudal and mediolateral oblique Full Field Digital Mammography views of the right b reast with Computer Aided Diagnosis followed by Tomosynthesis and right breast ultrasound. COMPARISON: Comparison is made with prior examinations. FINDINGS: Mammography/Tomosynthesis: Masses/Architectural Distortion: There again seen a few rounded well-circumscribed nodules in the ret roareolar region of the right breast. No areas of architectural distortion are seen. Microcalcifictions: No suspicious pleomorphic-type are seen. Skin Thickening/Nipple Retraction: None. Limited right breast US: Echotexture: Normal appearance of the glandular tissue. Shadowing: No suspicious foci. Cyst: Multiple small simple cysts are seen in the retroareolar region of the right breast. The large st measures 0.9 x 0.3 x 0.4 cm and is located at the 8 o'clock position 2 cm from the nipple. Solid lesions: There is a isoechoic well-circumscribed round solid lesion at the 8 o'clock position 1 cm from the nipple measuring 0.6 x 0.5 x 0.5 cm. Ductal dilation: None. IMPRESSION: 1. No definite evidence of malignancy is noted. Multiple simple right breast cysts. 2. Solid isoechoic 0.6 cm nodule in the right breast. No definite suspicious characteristics are see n. This may represent a small fibroadenoma. 3. A follow-up right breast ultrasound in 6 months is recommended for re-evaluation. 4. The findings were discussed with the patient on the date of the examination. BI-RADS Category 3 - 6 month - Probably Benign Finding: Recommend follow-up imaging in 6 months Breast Density - Category B - Scattered areas of fibroglandular density Breast density Category C or D implies that the patient has dense breast tissue. Dense breast tissue can make it harder to find cancer on a mammogram. Dense breast tissue is also associated with an incr eased risk of breast cancer. This information about the result of the mammogram report was provided to the patient to raise their awareness. Use this report when you speak with the patient about their risks for breast cancer, which includes their family history. At that time, you may recommend additional screening tests (Ultrasoun d or MRI) as these tests may add significant information. A negative radiographic report should not delay biopsy if a dominant or clinically suspicious mass is present. Up to ten percent of cancers are not identified on mammography. A negative report may reinforce clinical impression. Adenosis and dense breasts may obscure an underlying neoplasm. False positive reports average 6 to 10%. Patient will receive a letter notifying them of these results.
== END 2022-09-28 01:57 ==
PROVIDERS: PCP Nurse Practitioner Family; Visit Provider Nurse Practitioner Family
DX: Z12.31 Encounter for screening mammogram for malignant neoplasm of breast (principal); R92.8 Other abnormal and inconclusive findings on diagnostic imaging of breast; N63.13 Unspecified lump in the right breast, lower outer quadrant; N60.11 Diffuse cystic mastopathy of right breast
CPT/HCPCS: 76642; 77063; 77067

== ENCOUNTER 2022-11-23 11:07 | Outpatient (CLI) | payer MEDICAID, SELFPAY ==
--- NOTE | 2022-11-23 07:00 | DI.RAD_ITS ---
Exam(s) XR LUMBAR SPINE COMPLETE EXAM: XR LUMBAR SPINE COMPLETE CLINICAL HISTORY: LUMBAR BACK PAIN,WORSE AFTER PT,RADICULOPATHY,M54.16. TECHNIQUE: 2D digital imaging was performed of the lumbar spine. Five images were obtained. AP, la teral, right oblique, left oblique and L5-S1 spot views were obtained. COMPARISON: CT CT ABDOMEN PELVIS W from 11/06/2020 FINDINGS: BONES: No fracture or destructive lesion. Small osteophytes are seen at the endplates in the lumbar s pine. No facet hypertrophy identified. DISKS: There is mild narrowing of the T12-L1 and L3-L4 disc spaces. ALIGNMENT: Lumbar spinal alignment is within normal limits. No spondylolysis or spondylolisthesis. SOFT TISSUE: Normal. There are surgical clips in the right upper quadrant of the abdomen which can be seen with prior cholecystectomy. IMPRESSION: Mild degenerative changes in the lumbar spine. DATA REPOSITORY: RADIATION DOSE DELIVERED:
== END 2022-11-23 11:27 ==
LOC: DI 11:07
PROVIDERS: PCP Nurse Practitioner Family; Visit Provider Nurse Practitioner Family
DX: M47.16 Other spondylosis with myelopathy, lumbar region
CPT/HCPCS: 72110

== ENCOUNTER 2022-12-05 12:57 | Emergency (ER) | payer MEDICAID, SELFPAY ==
[2022-12-05 13:09] VITALS: BP 118/81; PULSE 82; RESP 18; TEMP 37; O2SAT 99
--- NOTE | 2022-12-05 14:00 | DI.RAD_ITS ---
Exam(s) XR SHOULDER LT COMPLETE 2+V EXAM: XR SHOULDER LT COMPLETE 2+V CLINICAL HISTORY: fall, pain. TECHNIQUE: 2D digital imaging was performed. COMPARISON: CR XR SHOULDER LT COMPLETE 2+V from 05/20/2022 FINDINGS: Five views No evidence of fracture or dislocation nor abnormal soft tissue calcifications. Subacromial space un remarkable. AC joint unremarkable. Clavicle intact. Acromion intact. Bone density normal. No oss eous lesions. IMPRESSION: No significant osseous findings in the shoulder. DATA REPOSITORY: RADIATION DOSE DELIVERED:
--- NOTE | 2022-12-05 14:08 | ED.GENADUL_ITS ---
Discharge Plan Disposition Patient Disposition: Home Condition: Stable Discharge Details Clinical Impression: Contusion of left shoulder Primary Care Provider: Eh Fox ED Provider: Abdoulaye Rod Home Meds and New Rx's Prescriptions: Continued vitamin B complex [B Complex-Vitamin B12] Tablet 1 tab PO DAILY omega-3 fatty acids [Fish Oil Concentrate] 1,000 mg capsule 1,000 mg PO DAILY acetaminophen 500 mg tablet 1,000 mg PO Q6H PRN (Reason: fever) Qty: 90 0RF ibuprofen 800 mg tablet 800 mg PO Q8H PRN (Reason: pain) Qty: 90 1RF epinephrine [EpiPen 2-Sheldon] 0.3 mg/0.3 mL auto-injector 0.3 mg IM ONCE PRN (Reason: anaphylaxis) Qty: 2 0RF Rx Instructions: as a single dose fluoxetine 40 mg capsule 40 mg PO BID Rx Instructions: administer in the morning and at noon/midday prednisone 10 mg tablet 10 mg PO DIRECTED Qty: 30 0RF Rx Instructions: 40 mg po qd x 3 days, then 30 mg po qd x 3 days, then 20 mg po qd x 3 days, then 10 mg po qd x 3 days, then stop cyclobenzaprine 10 mg tablet 10 mg PO TID PRN (Reason: muscle spasm) Qty: 30 0RF riboflavin (vitamin B2) 100 mg tablet 100 mg PO DAILY cholecalciferol (vitamin D3) 125 mcg (5,000 unit) capsule 125 mcg PO DAILY folic acid 400 mcg tablet 0.4 mg PO DAILY topiramate [Topamax] 50 mg tablet 50 mg PO BID ondansetron HCl 4 mg tablet 4 mg PO Q8H PRN (Reason: nausea and vomiting) Qty: 10 0RF trazodone 50 mg tablet 50 mg PO HS Patient Comments: TAKE ONE TABLET BY MOUTH EVERY EVENING Discharge Instructions Instructions: Contusion in Adults (ED) Additional Instructions: your xray did not show concerning findings at this time if pain continues in a week follow up with your primary care provider if you feel more ill, have severe worsening pain or new symptoms such as difficulty breathing return to the emergency department Medical Decision Making 42 yo female who states she has a history of seizures, from prior ed note it notes nonepileptic psychogenic seizures and [place] [facility] [place] comes in with left shoulder pain. She states she was doing yard work and had a seizure episode and fell to the ground striking her left shoulder, no loc, recalls the event. Denies any head pain, neck pain, chest or abdominal pain, only has anterior left shoulder pain. She has not had fevers, chills, dyspnea. She appears well in no distress, caox4. NO signs of trauma to the head. She has tenderness to the anterior left shoulder, does have full rom but with pain in the anterior shoulder, no tenderness in the humerus, elbow, forearm, wrist or hand, intact sensation and pulses. Suspect contusion vs sprain, will xray to evaluate for fracture. imaging unremarkable, pt stable, no new pain, will place in sling to use for comfort and advised if pain continues in a week to see pcp, return precautions given Differential Diagnosis Differential Diagnosis: strain, contusion, fracture Imaging Data Radiologic Study: Attestation: I personally reviewed and interpreted this imaging study as follows: Imaging: X-Ray Radiologist's impression: no acute findings HPI General Mode of arrival: ambulatory . Date/Time Provider Initiated Documentation: 12/05/22 13:47 . Limitations to Documentation: no limitations . Information obtained by: patient . History of Present Illness 42 year old F presents to the emergency department with the chief complaint of left shoulder pain, described as moderate, Quality is described as aching, and is localized to the left (shoulder). Patient reports no radiation. Patient started experiencing this hour(s) (3) and it has been constant. Rest improves symptom(s), Movement worsens symptoms . Patient notes no other symptoms.. Patient did receive the following treatments prior to arrival, none Related Data Home Medications Medication Instructions Recorded Confirmed cholecalciferol (vitamin D3) 125 125 mcg PO DAILY 11/11/20 12/05/22 mcg (5,000 unit) capsule riboflavin (vitamin B2) 100 mg 100 mg PO DAILY 11/11/20 12/05/22 tablet acetaminophen 500 mg tablet 1,000 mg PO Q6H PRN fever #90 tabs 02/05/21 12/05/22 ibuprofen 800 mg tablet 800 mg PO Q8H PRN pain #90 tabs 02/05/21 12/05/22 omega-3 fatty acids 1,000 mg 1,000 mg PO DAILY 02/12/21 12/05/22 capsule (Fish Oil Concentrate) vitamin B complex (B 1 tab PO DAILY 02/12/21 12/05/22 Complex-Vitamin B12 tablet) folic acid 400 mcg tablet 0.4 mg PO DAILY 06/16/21 12/05/22 epinephrine 0.3 mg/0.3 mL 0.3 mg (0.3 mL) IM ONCE PRN 07/16/22 12/05/22 injection, auto-injector (EpiPen anaphylaxis #2 ea 2-Sheldon) ondansetron HCl 4 mg tablet 4 mg PO Q8H PRN nausea and 07/19/22 12/05/22 vomiting #10 tabs cyclobenzaprine 10 mg tablet 10 mg PO TID PRN muscle spasm #30 09/27/22 12/05/22 tabs fluoxetine 40 mg capsule 40 mg PO BID 09/27/22 12/05/22 prednisone 10 mg tablet 10 mg PO DIRECTED #30 tabs 09/27/22 12/05/22 topiramate 50 mg tablet (Topamax) 50 mg PO BID 10/04/22 12/05/22 trazodone 50 mg tablet 50 mg PO HS 12/05/22 12/05/22 Previous Rx's Medication Instructions Recorded acetaminophen 500 mg tablet 1,000 mg PO Q6H PRN fever #90 tabs 02/05/21 ibuprofen 800 mg tablet 800 mg PO Q8H PRN pain #90 tabs 02/05/21 epinephrine 0.3 mg/0.3 mL 0.3 mg (0.3 mL) IM ONCE PRN 07/16/22 injection, auto-injector (EpiPen anaphylaxis #2 ea 2-Sheldon) ondansetron HCl 4 mg tablet 4 mg PO Q8H PRN nausea and 07/19/22 vomiting #10 tabs cyclobenzaprine 10 mg tablet 10 mg PO TID PRN muscle spasm #30 09/27/22 tabs prednisone 10 mg tablet 10 mg PO DIRECTED #30 tabs 09/27/22 Allergies Allergy/AdvReac Type Severity Reaction Status Date / Time azithromycin Allergy Severe THROAT Verified 10/04/22 11:06 CLOSES UP propranolol Allergy Severe drops BP Verified 10/04/22 11:06 quickly shellfish derived Allergy Severe Anaphylaxis Verified 10/04/22 11:06 adhesive Allergy Intermediate blisters, Verified 10/04/22 11:06 silk tape only per patient latex Allergy Intermediate Hives, Verified 10/04/22 11:06 lips mariam albuterol Allergy Unknown liquid Verified 10/04/22 11:06 codeine AdvReac Severe GI UPSET Verified 10/04/22 11:06 hydrocodone AdvReac Severe GI UPSET Verified 10/04/22 11:06 erythromycin base AdvReac Intermediate Diarrhea, Verified 10/04/22 11:06 stomach General Stated Complaint: Orthopedic HAVEN: 3 Review of Systems All systems reviewed & are unremarkable except as noted in HPI and below Constitutional Constitutional: Denies chills, Denies fever(s) and Denies weakness Cardiovascular Cardiovascular: Denies chest pain and Denies dyspnea Respiratory Respiratory: Denies cough and Denies dyspnea Gastrointestinal Gastrointestinal: Denies abdominal pain, Denies nausea and Denies vomiting Integumentary/Breasts Skin/Breast: Denies rash Neurologic Neurologic: Denies weakness PFSH All Active Problems (Updated 12/05/22 @ 15:05 by Abdoulaye Rod MD) Lumbar back pain with radiculopathy affecting left lower extremity (Acute) Depression (Chronic ~10/03/15) Classical migraine (Acute ~10/03/15) Erosive gastritis (Acute ~03/10/18) Dry eye syndrome of bilateral lacrimal glands (Acute) Hypermetropia, left eye (Acute) Regular astigmatism, bilateral (Acute) Vitreous degeneration, right eye (Acute) Serous detachment of retinal pigment epithelium, left eye (Acute) Perimenopausal (Acute) Contusion of left shoulder (Acute) Medical History Abdominal pain Carpal tunnel syndrome Cholelithiasis De Quervain's disease (tenosynovitis) Hemiplegic migraine, not intractable, without status migrainosus (~04/16/16) Median nerve entrapment Numbness and tingling of left side of face Migrainous s/s Pityriasis rosea Psychogenic nonepileptic seizure Per Dr. Ata Young 11/06/21 at [facility] [place] Rectocele (~01/18/17) Retinal vasculitis, left eye Surgical History H/O section x3 H/O gynecological procedure Uterine Oblation H/O laparoscopy (~01/18/17) colpopexy, mesh sacral, lysis of adhesions H/O wisdom tooth extraction History of anterior colporrhaphy post rectocele with or w/o perineorrhaphy History of bladder suspension procedure (~04/29/15) History of esophagogastroduodenoscopy (EGD) (~04/29/17) also 02/2018 History of hysterectomy History of laparoscopic cholecystectomy (~02/18/21) Hx of tonsillectomy (~04/29/14) Family History Mother Asthma Depression Hyperlipidemia Hypertension Father Depression Hyperlipidemia Hypertension Brother Alcohol abuse Asthma Hyperlipidemia Hypertension Son Asthma Depression Social History Smoking/Tobacco Use Status: Former Tobacco Use tobacco type: cigarettes Tobacco: How many years used: 17 Quit status: considering quitting Second Hand Exposure: Yes Smoking risk assessment performed?: Yes Alcohol Intake: current Alcohol Intake frequency: a few times a week Alcohol type: hard liquor Drug use: Daily Substance use type: marijuana Caregiver/Support person: No Household members: significant other, children and other Details: CLIENT Communication Needs: Corrective Lenses Do you need help understanding health information?: Often Pets and animals: Yes Pets and animals: cat(s) and dog(s) Sexually active: Yes Do you think of yourself as: straight/heterosexual Current gender identity: female What is your relationship status?: living with partner How often do you talk on the phone with friends or family?: never How often do you get together with friends or relatives?: never How often do you attend cheondoism or judaism services?: decline to answer Do you belong to any clubs or organized social groups?: no Panel score (0-1 are the most socially isolated patients): 1 What type of physical activity do you participate in: regular exercise Duration: 30-45 minutes/day Frequency: 3-4 times per week Renate/Yazidism: No preference Special renate needs: No Seatbelt use: sometimes Helmet use: No (N/A) Drive intox or ride w/intox bus driver supervisor: No Do you feel safe at home: Yes Do you feel safe in your relationship?: Yes Exam Const General: no acute distress Orientation: alert HENMT Head: normal to inspection Ears: external ears normal General nose exam: external nose normal Mouth: moist mucous membranes Eyes General: appearance normal, both eyes and all related structures Neck Neck: normal visual inspection Resp Effort & Inspection: normal respiratory effort and able to speak in complete sentences Cardio Rate: regular rate Skin General skin exam: no rashes or lesions noted Neuro General: patient alert and patient oriented x3 Extrem General: normal to inspection and capillary refill normal Psych Mental Status: mental status grossly normal Course Vital Signs Vital signs: Vital Signs Temperature 37 C 12/05/22 13:09 Pulse 82 12/05/22 13:09 Respiratory Rate 18 12/05/22 13:09 Blood Pressure 118/81 12/05/22 13:09 Pulse Oximetry 99 12/05/22 13:09 Temperature 37 C 12/05/22 13:09 Temperature Source Oral 12/05/22 13:09 Pulse 82 12/05/22 13:09 Respiratory Rate 18 12/05/22 13:09 Respiratory Effort Normal, Non-Labored 12/05/22 13:13 Blood Pressure 118/81 12/05/22 13:09 Blood Pressure Position Sitting 12/05/22 13:09 Pulse Oximetry 99 12/05/22 13:09 Oxygen Delivery Method Room Air 12/05/22 13:09 Oxygen Flow Rate 0 12/05/22 13:09 Pain Level 8 12/05/22 13:09
--- NOTE | 2022-12-05 15:00 | DI.VRAD_ITS ---
PROCEDURE INFORMATION: Exam: XR Left Shoulder Exam date and time: 12/05/2022 2:47 PM Age: 42 years old Clinical indication: Injury or trauma; Fall; Blunt trauma (contusions or hematomas); Shoulder; Left TECHNIQUE: Imaging protocol: Radiologic exam of the left shoulder. Views: 2 or more views. COMPARISON: CR XR SHOULDER LT COMPLETE 2+V 05/20/2022 8:08 AM FINDINGS: Bones/joints: There is no evidence of acute fracture.There is no evidence of malalignment or dislocation. Soft tissues: Normal. IMPRESSION: There is no evidence of acute fracture.There is no evidence of malalignment or dislocation. Dictated and Authenticated by: Riky Chowdary MD. Ordering:JASSON Stanford MD
== END 2022-12-05 15:38 | disposition home or self-care (01) ==
PROVIDERS: Emergency Provider Emergency Medicine; PCP Nurse Practitioner Family
DX: S40.012A Contusion of left shoulder, initial encounter (principal); R56.9 Unspecified convulsions; W19.XXXA Unspecified fall, initial encounter
CPT/HCPCS: 99283; 73030

== ENCOUNTER 2022-12-14 02:02 | Outpatient (CLI) | payer MEDICAID, SELFPAY ==
--- NOTE | 2022-12-14 10:30 | DI.MRI_ITS ---
Exam(s) MR LUMBAR SPINE WO EXAM: MR LUMBAR SPINE WO CLINICAL HISTORY: lumbar back pain with radiculopathy,m54.16. TECHNIQUE: Multiplanar multisequence MRI of the Lumbar spine was performed. COMPARISON: CR XR LUMBAR SPINE COMPLETE from 11/23/2022 FINDINGS: Bones: The last intervertebral disc space is designated the L5/S1 level for the numbering purpose of this examination. Small anterior osteophytes are seen at T12-L1 and L3-L4. Alignment is satisfactor y. The signal characteristics are unremarkable. Cord: The conus tip ends at the L1 level. It is of normal size and signal intensity. T12-L1: No disc herniations or bulges are present. No central spinal canal or neural foraminal stenos is. L1-2: No disc herniations or bulges are present. No central spinal canal or neural foraminal stenosis . L2-3: No disc herniations or bulges are present. No central spinal canal or neural foraminal stenosis . L3-4: No disc herniations or bulges are present. No central spinal canal or neural foraminal stenosis . L4-5: There is a small right lateral disc herniation with protrusion into the right neural foramen. No significant neural foraminal stenosis is seen. No central spinal canal or neural foraminal stenos is. L5-S1: No disc herniations or bulges are present. No central spinal canal or neural foraminal stenosi s. Soft tissues: The visualized SI joints and sacrum are well maintained. The paraspinal soft tissues ar e unremarkable. IMPRESSION: 1. No evidence of significant spinal stenosis or neuroforaminal narrowing. 2. Mild degenerative changes seen in the lumbar spine as described above. 3. Small right lateral disc herniation at L4-L5 without significant neural foraminal stenosis. DATA REPOSITORY:
== END 2022-12-14 02:22 ==
LOC: DI 02:02
PROVIDERS: PCP Nurse Practitioner Family; Visit Provider Nurse Practitioner Family
DX: M54.16 Radiculopathy, lumbar region (principal); M51.36 Other intervertebral disc degeneration, lumbar region
CPT/HCPCS: 72148

== ENCOUNTER → 2023-04-01 00:46 | Outpatient (CLI) | payer MEDICAID, SELFPAY ==
--- NOTE | 2023-04-01 08:30 | DI.US_ITS ---
Exam(s) US BREAST RT LIMITED EXAM: US BREAST RT LIMITED CLINICAL HISTORY: 6 MO F/U, F/U ABNL MAMMO, R92.8 TECHNIQUE: Ultrasound right breast performed using standard protocol. COMPARISON: MG MG MAMMO SCREENING from 07/02/2021 MG MG MAMMO SCREENING from 09/20/2022 US US BREAST RT LIMITED from 09/28/2022 MG MG MAMMO SCREEN CALL BACK UNI from 09/28/2022 FINDINGS: Stable appearance isoechoic circumscribed lesion in the 8 o'clock position 1 cm from the nipple measu red at 5 millimeters in diameter. Other cysts are again noted. No suspicious findings. IMPRESSION: No sonographically suspicious finding. BI-RADS Category 2 - Benign Findings Bilateral screening mammography recommended in September 2023 DATA REPOSITORY:
== END ==
PROVIDERS: PCP Nurse Practitioner Family; Visit Provider Nurse Practitioner Family
DX: R92.8 Other abnormal and inconclusive findings on diagnostic imaging of breast (principal); Z09 Encounter for follow-up examination after completed treatment for conditions other than malignant neoplasm
CPT/HCPCS: 76642

== ENCOUNTER 2023-05-24 08:25 | Outpatient (CLI) | payer MEDICAID, SELFPAY ==
[2023-05-24 12:22] LABS: Abs Immature Grans 0.05 10^3/uL (0.0-0.06); Absolute Basophil Count 0.04 10^3/uL (0.0-0.2); Absolute Lymphocyte Count 1.19 10^3/uL (1.2-3.4); Basophils % 0.3; Eosinophils % 1.1; HCT 43.2 % (36.0-46.0); HGB 14.4 g/dL (11.2-15.7); Immature Grans % 0.4; Lymphocytes % 9.7; MCH 31.3 pg (27.0-33.0); MCHC 33.3 % (32.0-36.0); MCV 94 fL (80-95); Monocytes % 4.1; Neutrophils % 84.4; Platelet Count 373 10^3/uL (130-400); RDW 13.1 % (11.7-14.6); RDW-SD 45.5 fL; WBC 12.28 10^3/uL (4.4-10.8)
[2023-05-24 12:24] LABS: Absolute Eosinophil Count 0.14 10^3/uL (0.0-0.7); Absolute Neutrophil Count 10.36 10^3/uL (1.2-6.7)
[2023-05-24 12:51] LABS: ALT 29 U/L (14-59); AST 15 U/L (15-37); Albumin 3.9 g/dL (3.4-5.0); Alkaline Phosphatase 59 U/L (46-116); Anion Gap 12.3 mmol/L (3-11); BUN 11 mg/dL (7-18); Bilirubin, Total 0.4 mg/dL (0.2-1.0); CO2 22.7 mmol/L (21.0-32.0); CREATININE 0.8 mg/dL (0.55-1.02); Calcium 9.3 mg/dL (8.5-10.1); Calculated LDL 138 mg/dL (<100); Chloride 105 mmol/L (98-107); Cholesterol 212 mg/dL (<200); Glucose 98 mg/dL (74-106); HDL Cholesterol 67 mg/dL (40-60); Potassium 3.3 mmol/L (3.5-5.1); Sodium 140 mmol/L (136-145); Total Protein 7.5 g/dL (6.4-8.2); Triglyceride 39 mg/dL (<150)
[2023-05-24 13:14] LABS: Amylase 55 U/L (25-115); Lipase 36 U/L (16-77)
[2023-05-25 09:16] LABS: HIV-1/2 Ag & Ab Screen Negative (Negative)
[2023-05-25 15:14] LABS: Hepatitis C Ab w Rflx HCV PCR Negative (Negative)
== END 2023-05-24 08:26 | disposition home or self-care (01) ==
LOC: LOS 08:26
PROVIDERS: PCP Nurse Practitioner Family; Referring Provider Nurse Practitioner Family; Visit Provider Nurse Practitioner Family
DX: K52.9 Noninfective gastroenteritis and colitis, unspecified (principal); Z11.4 Encounter for screening for human immunodeficiency virus [HIV]; Z11.59 Encounter for screening for other viral diseases
CPT/HCPCS: 36415; 80053; 80061; 83690; 86803; 87389; 82150; 85025

== ENCOUNTER → 2023-09-22 02:37 | Outpatient (CLI) | payer MEDICAID, SELFPAY ==
--- NOTE | 2023-09-22 15:10 | DI.MAMMO_ITS ---
Exam(s) MAMMO SCREENING EXAM: MAMMO SCREENING CLINICAL HISTORY: screening,z12.39. TECHNIQUE: Bilateral full field digital CC and MLO mammographic images were obtained with 3D tomosyn thesis and utilizing computer aided detection (CAD). COMPARISON: Prior mammograms were reviewed. Prior ultrasound examinations of 09/28/2022 and 04/01/2023 were also reviewed. FINDINGS: No new significant left breast findings. Previously described small nodular densities located lateral of center in the right breast appear unc hanged from prior mammograms. There are no new spiculated masses nor do malignant appearing microcalcification groups. There is no significant architectural distortion nor skin thickening-retraction. IMPRESSION: Stable benign-appearing findings. No radiographic evidence of malignancy. BI-RADS Category 2 - Benign Findings Breast Density - Category B - Scattered areas of fibroglandular density Breast density Category C or D implies that the patient has dense breast tissue. Dense breast tissue can make it harder to find cancer on a mammogram. Dense breast tissue is also associated with an incr eased risk of breast cancer. This information about the result of the mammogram report was provided to the patient to raise their awareness. Use this report when you speak with the patient about their risks for breast cancer, which includes their family history. At that time, you may recommend additional screening tests (Ultrasoun d or MRI) as these tests may add significant information. A negative radiographic report should not delay biopsy if a dominant or clinically suspicious mass is present. Up to ten percent of cancers are not identified on mammography. A negative report may reinforce clinical impression. Adenosis and dense breasts may obscure an underlying neoplasm. False positive reports average 6 to 10%. Patient will receive a letter notifying them of these results.
== END ==
PROVIDERS: PCP Nurse Practitioner Family; Visit Provider Nurse Practitioner Family
DX: Z12.31 Encounter for screening mammogram for malignant neoplasm of breast (principal)
CPT/HCPCS: 77063; 77067

== ENCOUNTER 2024-10-09 15:51 | Outpatient (CLI) | payer MEDICARE, MEDICAID, SELFPAY ==
--- NOTE | 2024-10-09 14:30 | DI.RAD_ITS ---
Exam(s) XR SHOULDER LT COMPLETE 2+V EXAM: XR SHOULDER LT COMPLETE 2+V CLINICAL HISTORY: LEFT SHOULDER PAIN. TECHNIQUE: 2D digital imaging was performed. COMPARISON: CR,XR XR SHOULDER LT COMPLETE 2+V from 12/05/2022 FINDINGS: Two views There is no evidence of fracture or dislocation nor abnormal soft tissue calcifications. Subacromial space appears unremarkable. There are no degenerative changes evident in the glenohumeral and AC ge[place] ints. Bone density is normal. There are no osseous lesions. IMPRESSION: No significant radiographic findings on these two views of the left shoulder and no significant ferraro e compared to images of November 2022. DATA REPOSITORY: RADIATION DOSE DELIVERED:
== END 2024-10-09 15:52 | disposition home or self-care (01) ==
LOC: DIORS 15:51
PROVIDERS: PCP Nurse Practitioner Family; Referring Provider Nurse Practitioner Family; Visit Provider Student in an Organized Health Care Education/Training Program
DX: S46.312A Strain of muscle, fascia and tendon of triceps, left arm, initial encounter; X50.0XXA Overexertion from strenuous movement or load, initial encounter
CPT/HCPCS: 99213; 99214; 73030

== ENCOUNTER 2024-10-16 00:53 | Outpatient (CLI) | payer MEDICARE, MEDICAID, SELFPAY ==
--- NOTE | 2024-10-16 06:30 | DI.MRI_ITS ---
Exam(s) MR UPPER EXTREMITY LT WO CLINICAL HISTORY: injury of triceps,s46.309a. TECHNIQUE: Multiplanar multisequence MRI Examination was performed. CONTRAST MATERIAL: Noncontrast COMPARISON: Plain film of the shoulder 09 October 2024 FINDINGS: Bones: There is no fracture or contusion pattern. No bone marrow edema is present Musculotendinous structures: There is no muscular edema, myositis or focal collection. No muscular in jury the triceps tendon appears intact. IMPRESSION: Unrmarkable MRI of the Left upper arm. DATA REPOSITORY:
== END 2024-10-16 01:13 ==
LOC: DI 00:53
PROVIDERS: PCP Nurse Practitioner Family; Visit Provider Student in an Organized Health Care Education/Training Program
DX: S46.302D Unspecified injury of muscle, fascia and tendon of triceps, left arm, subsequent encounter (principal); X58.XXXD Exposure to other specified factors, subsequent encounter
CPT/HCPCS: 73218

== ENCOUNTER → 2024-10-17 13:08 | Outpatient (BNVA) | payer MEDICARE, MEDICAID, SELFPAY | PROVIDERS: PCP Nurse Practitioner Family; Referring Provider Nurse Practitioner Family; Visit Provider Student in an Organized Health Care Education/Training Program | DX: S46.312D Strain of muscle, fascia and tendon of triceps, left arm, subsequent encounter; X50.0XXD Overexertion from strenuous movement or load, subsequent encounter | CPT/HCPCS: 99213; 99214 ==

== ENCOUNTER 2024-11-07 00:48 | Outpatient (CLI) | payer MEDICARE, MEDICAID, SELFPAY ==
--- NOTE | 2024-11-07 08:00 | DI.MRI_ITS ---
Exam(s) MR UPPER JOINT LT WO EXAM: MR UPPER JOINT LT WO CLINICAL HISTORY: ? LABRAL TEAR,injury of triceps,s43.432a,s46.309a. TECHNIQUE: Multiplanar multisequence MRI was performed. COMPARISON: CR XR SHOULDER LT COMPLETE 2+V from 10/09/2024 MR MR UPPER EXTREMITY LT WO from 10/16/2024 FINDINGS: BONES: There is no fracture or contusion pattern. JOINTS: The acromioclavicular joint is normal. The glenohumeral joint is normal. TENDONS: Supraspinatus: Unremarkable. Infraspinatus: Unremarkable. Subscapularis: Unremarkable. Teres Minor: Unremarkable. Biceps and [place]: Unremarkable. MUSCLES: Unremarkable. GLENOID LABRUM: There is a tear of the superior labrum. It appears to extend the entire length of th e superior labrum. SOFT TISSUES: Unremarkable. LIGAMENTS: Unremarkable. OTHER: There is a small amount of fluid in the subacromial subdeltoid bursa. IMPRESSION: 1. Type 2 superior labral tear. 2. No evidence of a rotator cuff tear. 3. Small amount of fluid seen in the subacromial subdeltoid bursa. DATA REPOSITORY:
== END 2024-11-07 01:08 ==
LOC: DI 00:48
PROVIDERS: PCP Nurse Practitioner Family; Visit Provider Student in an Organized Health Care Education/Training Program
DX: S43.432A Superior glenoid labrum lesion of left shoulder, initial encounter (principal); X58.XXXA Exposure to other specified factors, initial encounter
CPT/HCPCS: 73221

== ENCOUNTER → 2024-11-14 14:07 | Outpatient (BNVA) | payer MEDICARE, SELFPAY | PROVIDERS: PCP Nurse Practitioner Family; Referring Provider Nurse Practitioner Family; Visit Provider Student in an Organized Health Care Education/Training Program | DX: S43.432D Superior glenoid labrum lesion of left shoulder, subsequent encounter (principal); X50.0XXD Overexertion from strenuous movement or load, subsequent encounter | CPT/HCPCS: 99213 ==

== ENCOUNTER → 2025-01-16 13:48 | Outpatient (BNVA) | payer MEDICARE, SELFPAY | PROVIDERS: PCP Nurse Practitioner Family; Referring Provider Nurse Practitioner Family; Visit Provider Student in an Organized Health Care Education/Training Program | DX: S43.432D Superior glenoid labrum lesion of left shoulder, subsequent encounter (principal); X58.XXXD Exposure to other specified factors, subsequent encounter | CPT/HCPCS: 99213 ==